=== PATIENT | female | born 1955 | race African-American/Black ===

== ENCOUNTER 2019-12-17 17:35 | Inpatient (IN) | payer OTHER ==
[~2019-12-17] VITALS: Ht 172.7 cm; Wt 88.7 kg
--- NOTE | ~2019-12-17 | EMS ---
[facility] [address] [place] [address] EMS Patient Care Report Name: MARISSA ANTHONY Room #: PRE M.R.#: [id number] Admission: Attend Phys: Discharge: Date of : 53 Report #: [id number] THIS REPORT FOR: //name// Report Transmitted: 12/17/2019 16:58 EMS Care Summary [place], [place]/[facility] Incident [id number] @ 12/17/2019 17:00 Incident Location [address] [place] [address] Patient MARISSA ANTHONY Female, 64 Years 1955 Patient Address [address] [place] [id number] Patient History Congestive Heart Failure (CHF),Hypertension (HTN),Paranoid Schizophrenia, Patient Allergies No known allergies, Patient Medications Meloxicam, Haloperidol, Metoprolol, Risperidone, Spironolactone, Furosemide, Lorazepam, Chief Complaint LOW SPO2 Disposition Transported No Lights/[place] Dispatch Reason Breathing Problem Transported To [facility] Narrative M28 ARRIVES TO FIND 64 Y/O F PT ACTING EXTREMELY LETHARGIC AND WHO, PER PR STAFF, HAS HAD A LOW SPO2. [facility] [address] [place] [address] EMS Patient Care Report Name: [facility] Room #: PRE Navin.R.#: [id number] Admission: Attend Phys: Discharge: Date of : 53 Report #: [id number] ASSESSMENTS AND TREATMENTS NOTED. PT MOVED TO COT VIA [id number]. PT MOVED TO AMBULANCE. PT TRANSPORTED. M28 ARRIVES AT DESTINATION. PT MOVED TO ROOM IN ED. PT MOVED TO BED IN ROOM VIA DRAWSHEET METHOD. PT CARE TRANSFERRED. M28 RETURNS TO SERVICE. Initial Vitals @17:12P: 100,R: 16,BP: 104/62,Pain: 0/10,GCS: 15,SpO2: 76,Revised Trauma: 12, @17:26P: 70,R: 16,GCS: 15,SpO2: 98, Assessments @17:15MENTAL:Person Oriented,Time Oriented,Place Oriented,Event Oriented,SKIN:HEENT:LUNG SOUNDS:ABDOMEN:PELVIS//GI:EXTREMITIES:PULSE:NEURO:@17:20MENTAL:Other,SKIN:No Abnormalities,HEENT:Head/Face: No Abnormalities,Eyes: No Abnormalities,Neck/Airway: No Abnormalities,LUNG SOUNDS:General: No Abnormalities,Left Upper: No Abnormalities,Right Upper: No Abnormalities,Left Lower: No Abnormalities,Right Lower: No Abnormalities,ABDOMEN:General: No Abnormalities,Left Upper: No Abnormalities,Right Upper: No Abnormalities,Left Lower: No Abnormalities,Right Lower: No Abnormalities,PELVIS//GI:No Abnormalities,EXTREMITIES:Left Arm: No Abnormalities,Right Arm: No Abnormalities,Left Leg: No Abnormalities,Right Leg: No Abnormalities,PULSE:NEURO:No Abnormalities, Impression Acute Respiratory Distress (Dyspnea) Procedures @17:17Saline Lock 0cc (18 ga) Site: Antecubital-LeftResponse: UnchangedSucceeded@17:173-Lead ECGResponse: UnchangedSucceeded@17:15ALS AssessmentResponse: UnchangedSucceeded@17:16Oxygen FlowRate: 4 Device: Nasal Cannula (NC) Response: UnchangedSucceeded Timeline 16:58,Call Received 16:58,Dispatch Notified 17:00,Dispatched 17:00,En Route 17:04,On Scene 17:12,At Patient 17:12,BP: 104/62 M,PULSE: 100,RR: 16 R,SPO2: 76 Ox,ETCO2: ,BG: ,PAIN: 0,GCS: 15, 17:15,ALS Assessment,Response: UnchangedSucceeded, 17:16,Oxygen FlowRate: 4 Device: Nasal Cannula (NC) Response: UnchangedSucceeded, 17:17,Saline Lock 0cc 18 ga Site: Antecubital-Left,Response: UnchangedSucceeded, 17:17,3-Lead ECG,Response: UnchangedSucceeded, [facility] [address] [place] [address] EMS Patient Care Report Name: [facility] Room #: PRE M.R.#: [id number] Admission: Attend Phys: Discharge: Date of : 53 Report #: [id number] 17:20,Depart Scene 17:26,BP: / M,PULSE: 70,RR: 16 R,SPO2: 98 Ox,ETCO2: ,BG: ,PAIN: ,GCS: 15, 17:28,At Destination 17:42,Call Closed Disclaimer v1.1 Copyright 2020 [employer] This EMS Care Summary contains data elements from the applicable legal record (which may be displayed differently). It is designed to provide pertinent information for the following purposes: continuity of care, clinical quality, and state data reporting. The complete legal record is available to ED staff and administrators of the receiving hospital in ES's Patient Tracker. All data is provided "as is."
[2019-12-17] MEDS ORDERED: BENZTROPINE ME0.5 MG PO (17:50)
[2019-12-17] MEDS ORDERED: ASA81BEC PO (17:50)
[2019-12-17] MEDS ORDERED: HALOPERIDOL2 MG/1 ML PO (17:51)
[2019-12-17] MEDS ORDERED: MELOXICAM7.5 MG PO (17:51)
[2019-12-17] MEDS ORDERED: DEPAKOTE ER500 M1 PO (17:52)
[2019-12-17] MEDS ORDERED: RISPERDAL 3 MG T3 MG PO (17:53)
[2019-12-17] MEDS ORDERED: LORAZEPAM 0.50.5 MG PO (17:53)
[2019-12-17] MEDS ORDERED: PAIN RELIEF325 MG PO (17:55)
[2019-12-17] MEDS ORDERED: ARISTADA882 MG/3.2 IM (17:55)
[2019-12-17 17:56] LABS: HEMATOCRIT 43.4 % (37.0-47.0); MCH 31.1 pg (26.0-34.0); MCHC 32.3 g/dL (28.0-37.0); MCV 96.3 fL (80.0-100.0); PLATELET COUNT 125 thou/uL (150-400); RBC 4.51 mil/uL (4.20-5.00); RDW 16.8 % (10.5-14.5); WBC 3.6 thou/uL (4.0-11.0)
[2019-12-17] MEDS ORDERED: TOPROL XL25 MG PO (17:58)
[2019-12-17] MEDS ORDERED: FUROSEMIDE 40 M40 MG PO (17:58)
[2019-12-17] MEDS ORDERED: SPIRONOLACTONE25 MG PO (17:59)
[2019-12-17 18:06] LABS: ANION GAP < 0 mmol/L (7-16); BUN 17 mg/dL (7-18); CALCIUM 9.1 mg/dL (8.5-10.1); CHLORIDE 101 mmol/L (98-107); CO2 40 mmol/L (21-32); CREATININE 0.9 mg/dL (0.6-1.0); GLUCOSE 95 mg/dL (74-106); POTASSIUM 3.7 mmol/L (3.5-5.1); SODIUM 139 mmol/L (136-145)
[2019-12-17 18:07] LABS: BE(vivo) 6.2 mmol/L (-2 to +3); HCO3 37.4 mmol/L (22.0-26.0); PO2 95.8 mmHg (80.0-100.0); sO2 95.5 % (92.0-98.0)
[2019-12-17 18:08] LABS: PCO2 92.1 mmHg (35.0-45.0); pH 7.226 (7.360-7.450)
[2019-12-17 18:16] LABS: ABSOLUTE NEUTROPHILS 1.4 thou/uL (1.4-8.2); ANISOCYTOSIS 1+; ATYPICAL LYMPHS 2 %
[2019-12-17 18:26] LABS: SGOT 12 U/L (15-37); SGPT 12 U/L (30-65); TOTAL BILIRUBIN 0.4 mg/dL (<0.1-1.0); TOTAL PROTEIN 7.5 g/dL (6.4-8.2); TROPONIN-I <0.06 ng/mL (<0.06)
[2019-12-17 18:36] VITALS: BP 117/64
[2019-12-17 18:45] LABS: URINE BILIRUBIN NEGATIVE (Negative); URINE BLOOD 1+ (Negative); URINE CLARITY CLEAR; URINE COLOR YELLOW; URINE GLUCOSE-RANDOM* NEGATIVE (Negative); URINE KETONES NEGATIVE (Negative); URINE LEUKOCYTES-REFLEX NEGATIVE (Negative); URINE NITRITE-REFLEX NEGATIVE (Negative); URINE PROTEIN (DIPSTICK) TRACE (Negative); URINE UROBILINOGEN 0.2 E.U./dl (0.2-1.0)
[2019-12-17 18:53] LABS: CASTS None Seen /LPF (None Seen); CRYSTALS None Seen /LPF (None Seen); MUCUS 0-3 Light strn/LPF (None Seen); SQUAMOUS 4-10 Moderate /LPF (0-3)
[2019-12-17 18:54] LABS: BACTERIA-REFLEX None Seen /HPF (None Seen); URINE RBC 0-2 Rare /HPF (0-2); URINE WBC-REFLEX 0-5 Rare /HPF (0-5)
--- NOTE | 2019-12-17 19:21 | NUR ---
RT NOTIFIED REARDING ANOTHER ABG WITH STAT RESULTS
[2019-12-17 19:43] LABS: BE(vivo) 4.2 mmol/L (-2 to +3); HCO3 33.4 mmol/L (22.0-26.0); PO2 92.3 mmHg (80.0-100.0); sO2 95.8 % (92.0-98.0)
[2019-12-17 19:44] LABS: PCO2 72.8 mmHg (35.0-45.0); pH 7.279 (7.360-7.450)
[2019-12-17 20:16] VITALS: BP 102/53
--- NOTE | 2019-12-17 20:20 | NUR ---
CONTACTED ICU TO PROVIDE REPORT. ICU DEFERS PT. AT THIS TIME.
[2019-12-17 20:43] LABS: AMP/METHAMP Negative (Negative); BARBITURATES Negative (Negative); BENZODIAZEPINES Negative (Negative); COCAINE Negative (Negative); METHADONE Negative (Negative); OPIATES Negative (Negative); PCP Negative (Negative)
[2019-12-17 22:22] LABS: BE(vivo) 6.1 mmol/L (-2 to +3); HCO3 35.6 mmol/L (22.0-26.0); PCO2 76.3 mmHg (35.0-45.0); PO2 78.6 mmHg (80.0-100.0); pH 7.287 (7.360-7.450); sO2 93.6 % (92.0-98.0)
[2019-12-17 23:14] VITALS: BP 132/71
[2019-12-17 23:15] VITALS: BP 123/83
[2019-12-17 23:30] VITALS: BP 117/60
[2019-12-17 23:45] VITALS: BP 112/42
--- NOTE | 2019-12-17 23:46 | NUR ---
ASSUMED CARE OF PT AT 2315. PT VERY DROWSY. ABLE TO IDENTIFY SELF. NODS APPROPRIATELY TO Y/N QUESTIONS. PT ABLE TO FOLLOW SIMPLE COMMANDS. SR/SB ON THE MONITOR WITH OCCASSIONAL PVCs. VSS. DR SAL NOTIFIED OF PATIENT'S CURRENT STATUS AND NOTIFIED.
[2019-12-18] VITALS (31 sets, daily range): BP systolic 80–187; BP diastolic 37–162
[2019-12-18 01:25] LABS: BE(vivo) 7.4 mmol/L (-2 to +3); HCO3 35.1 mmol/L (22.0-26.0); PCO2 62.9 mmHg (35.0-45.0); PO2 141.6 mmHg (80.0-100.0); pH 7.364 (7.360-7.450); sO2 98.7 % (92.0-98.0)
[2019-12-18 02:35] LABS: HEMATOCRIT 41.6 % (37.0-47.0); HEMOGLOBIN 13.3 gm/dL (12.0-15.0); MCH 30.8 pg (26.0-34.0); MCHC 31.9 g/dL (28.0-37.0); MCV 96.4 fL (80.0-100.0); RBC 4.32 mil/uL (4.20-5.00); RDW 16.8 % (10.5-14.5); WBC 4.5 thou/uL (4.0-11.0)
[2019-12-18 02:40] LABS: ANION GAP < 0 mmol/L (7-16); BUN 14 mg/dL (7-18); CALCIUM 8.6 mg/dL (8.5-10.1); CHLORIDE 101 mmol/L (98-107); CO2 42 mmol/L (21-32); CREATININE 0.8 mg/dL (0.6-1.0); GLUCOSE 84 mg/dL (74-106); MAGNESIUM 1.7 mg/dL (1.8-2.4); POTASSIUM 3.8 mmol/L (3.5-5.1); SODIUM 142 mmol/L (136-145)
[2019-12-18 07:45] LABS: BE(vivo) 4.7 mmol/L (-2 to +3); HCO3 39.9 mmol/L (22.0-26.0); PCO2 138.3 mmHg (35.0-45.0); PO2 96.2 mmHg (80.0-100.0); pH 7.078 (7.360-7.450); sO2 93.2 % (92.0-98.0)
--- NOTE | 2019-12-18 08:38 | EKG ---
[facility] [address] [place] [address] ELECTROCARDIOGRAM REPORT Name: [facility] Room #: 236-P ADM IN M.R.#: [id number] Admission: 12/17/19 Attend Phys: Jimi Martin MD Discharge: Date of : 53 Report #: [id number] THIS REPORT FOR: cc: FAM - Family physician unknown FAM - Family physician unknown Darell Olivares MD [facility] ~ THIS REPORT FOR: //name// [facility] Test Date: 2019-12-17 Test Time: 18:20:25 Pat Name: MARISSA ANTHONY Department: Room: [facility] Gender: F Operation Research Analyst: CISCO : 1955 Requested By: Zulema Barcenas Order Number: [id number] MD: Darell Olivares Measurements Intervals [place] Rate: 84 P: 40 SC: 132 QRS: -30 QRSD: 100 T: 141 QT: 433 QTc: 512 Interpretive Statements Sinus rhythm Ventricular premature complex Left atrial enlargement LVH with secondary repolarization abnormality Prolonged QT interval No previous ECG available for comparison Electronically Signed On 12-18-2019 8:36:57 CDT by Darell Olivares [email or web address] <ELECTRONICALLY SIGNED> By: Darell Olivares MD, FAC 12/18/19 0836 1820 182 Darell Olivares MD, [facility] /EPI
--- NOTE | 2019-12-18 11:26 | NUR ---
07 - DR SAL ON UNIT. UPDATE GIVEN FROM NIGHT RN. PT ON BIPAP AND HAD EPISODE OF VOMITING. REPEAT ABG DONE. RESULTS SHOWN TO DR. SAL. ORDERS TO PREPARE FOR INTUBATION, EUGENIE PLACEMENT AND CENTRAL LINE PLACEMENT. 0800 - IN PATIENT ROOM. LEVOPHED STARTED PER OCT. RESPIRATORY IN ROOM. 0820 - DR. SAL IN ROOM. 4O OF ETOMIDATE GIVEN. 40 OF SUCCINYLCHOLINE GIVEN. PT INTUBATED AT 0825. 7.5 ET, 24 @ LIP. 0830 - EUGENIE PLACED TO RIGHT RADIAL BY DR. SAL. PROPOFOL GTT INITIATED FOR VENT MANAGEMENT. TITRATING LEVOPHED TO MAINTAIN BLOOD PRESSURES. ATTEMPT TO PLACE CENTRAL LINE BY DR. SAL. UNSUCCESSFUL. AFTER ATTEMPTS OF CENTRAL LINE PLACEMENT, NOTED PATIENT BECAME BRADYCARDIC, NOTIFED DR. SAL, ORDERS FOR DOPAMINE GTT. 1299 - DR. ELAINE ON UNIT TO PLACE CENTRAL LINE. LINE PLACED TO RIGHT JUGULAR. CONFIRMED BY XRAY. ALSO CONFIRMED BY DR. ELAINE.
[2019-12-18 11:58] LABS: BE(vivo) 6.2 mmol/L (-2 to +3); HCO3 30.7 mmol/L (22.0-26.0); PCO2 43.3 mmHg (35.0-45.0); PO2 132.9 mmHg (80.0-100.0); pH 7.468 (7.360-7.450); sO2 98.8 % (92.0-98.0)
--- NOTE | 2019-12-18 12:00 | NUR ---
INITIAL ASSESSMENT: COMPA reviewed chart and spoke with nursing and attending physician. Pt was admitted from [facility] due to acute respiratory failure, CHF, AMS. Pt is in Enhanced Isolation to r/o COVID-19. Pt was on bipap earlier today and intubated late this morning. COMPA spoke with Manuel Kirk with the [facility] Public Rocket Motor Tester's office to provide update. Pt is a hinojosa of the [facility]. Pt with hx of paranoid schizophrenia. Pt is not normally on O2 at the facility and is able to ambulate independently. Awiating COVID-19 results at this time. COMPA received copy of guardianship ppwk. Faxed to ICU and spoke with pt's nurse to place on pt's chart. COMPA placed PA office contact info in [email or web address] should nursing/physicians need consents. COMPA is following to assist as needed with discharge planning.
--- NOTE | 2019-12-18 12:31 | NUR ---
SPOKE WITH [facility] OFFICE REGARDING PATIENT CARE/TREATMENT. UPDATED ON PT STATUS AND PROCEDURES COMPLETED THIS AM. MEDICAL NECESSITY CONSENTS SIGNED BY DR. SAL FOR EMERGENT PROCEDURES. ALSO NOTIFED ABOUT PLACEMENT OF RESTRAINTS FOR ET TUBE PROTECTION.
[2019-12-18 14:05] LABS: MAGNESIUM 1.9 mg/dL (1.8-2.4); POTASSIUM 3.6 mmol/L (3.5-5.1)
--- NOTE | 2019-12-18 15:44 | 2DMMODE ---
[facility] [address] [address] 2 D/M-MODE ECHOCARDIOGRAM Name: [facility] Room #: 236-P ADM IN M.R.#: [id number] Admission: 12/17/19 Attend Phys: Fuentes Dubon MD Discharge: Date of : 53 Report #: [id number] THIS REPORT FOR: cc: FAM - Family physician unknown FAM - Family physician unknown Bharathi Angelo MD ~ APPROVED REPORT Study performed: 12/18/2019 14:58:45 EXAM: Comprehensive 2D, Doppler, and color-flow Echocardiogram Patient Location: ICU Room #: 236 Status: routine BSA: 1.95 HR: 87 bpm BP: 100/44 mmHg Other Information Study Quality: Adequate Technically limited study due to patient laying on her right side/on vent. Indications CHF. Shortness of breath, elevated BNP. Hx: Tob, HTN. 2D Dimensions IVSd: 9.26 (7-11mm) LVOT Diam: 18.52 (18-24mm) LVDd: 57.22 mm PWd: 7.61 (7-11mm) LVDs: 50.08 (25-40mm) Aortic Root: 29.75 mm Aortic Valve AoV Peak Leonardo.: 1.64 m/s AO Peak Gr.: 10.77 mmHg LVOT Max P.89 mmHg LVOT Max V: 1.31 m/s TAYLER Vmax: 2.15 cm2 Mitral Valve E/A Ratio: 1.1 MV Decel. Time: 202.29 ms MV E Max Leonardo.: 1.03 m/s [facility] [address] [place] [place] [address] 2 D/M-MODE ECHOCARDIOGRAM Name: [facility] Room #: 236 ADM IN M.R.#: [id number] Admission: 12/17/19 Attend Phys: Fuentes Dubon, Discharge: Date of : 53 Report #: [id number] MV A Leonardo.: 0.93 m/s MV PHT: 58.66 ms Tricuspid Valve TR Peak Leonardo.: 3.09 m/s RAP Estimate: 15.00 mmHg TR Peak Gr.: 38.24 mmHg PA Pressure: 53.00 mmHg Left Ventricle Left ventricle is mildly dilated. Regional wall motion abnormalities are noted. There is normal left ventricular wall thickness. Left ventricular systolic function is moderate to severely decreased. LVEF is 30-35%. Moderate diastolic dysfunction is present (pseudonormal filling). Right Ventricle Right ventricle is not well visualized but appears grossly normal in size and function. Atria Left atrium is dilated. The right atrium size is normal. Aortic Valve The aortic valve is normal in structure. Trace aortic regurgitation. There is no aortic valvular stenosis. Mitral Valve The mitral valve is normal in structure. Trace mitral regurgitation. No evidence of mitral valve stenosis. Tricuspid Valve The tricuspid valve is normal in structure. Mild tricuspid regurgitation. Estimated PAP is 50mmHg. Pulmonic Valve Pulmonic valve is not well visualized. Great Vessels The aortic root is normal in size. IVC is dilated and collapses <50% with inspiration. Pericardium There is no pericardial effusion. <Conclusion> Left ventricle is mildly dilated. [facility] [address] [place] [address] 2 D/M-MODE ECHOCARDIOGRAM Name: [facility] Room #: 236-P ADM IN M.R.#: [id number] Admission: 12/17/19 Attend Phys: Fuentes Dubon, Discharge: Date of : 53 Report #: [id number] LVEF is 30-35%. Regional wall motion abnormalities are noted. Right ventricle is not well visualized but appears grossly normal in size and function. Left atrium is dilated. The aortic valve is normal in structure. Trace aortic regurgitation. The mitral valve is normal in structure. Trace mitral regurgitation. The tricuspid valve is normal in structure. Mild tricuspid regurgitation. Estimated PAP is 50mmHg. Pulmonic valve is not well visualized. There is no pericardial effusion. <ELECTRONICALLY SIGNED> By: Bharathi Angelo MD 12/18/19 1542 1542 154 Bharathi Angelo MD /INF
[2019-12-19 05:53] LABS: HEMATOCRIT 42.6 % (37.0-47.0); HEMOGLOBIN 14.1 gm/dL (12.0-15.0); MCH 30.9 pg (26.0-34.0); MCV 93.7 fL (80.0-100.0); RBC 4.55 mil/uL (4.20-5.00); RDW 15.8 % (10.5-14.5); WBC 10.4 thou/uL (4.0-11.0)
[2019-12-19 06:20] LABS: CALCIUM 8.8 mg/dL (8.5-10.1); CREATININE 0.9 mg/dL (0.6-1.0); PHOSPHORUS 2.7 mg/dL (2.5-4.9); POTASSIUM 3.5 mmol/L (3.5-5.1)
--- NOTE | 2019-12-19 07:31 | NUR ---
SEDATION VACATION AT 2107; PT OPENS EYES TO VOICE AND PAINFUL STIMULI. POSITIVE COUGH ANG GAG NOTED, WILL SQUEEZ HANDS AND MOVE HER FEET. SEDATION VACATION LASTED 15 MINUTES. PROPOFOL TITRATED DOWN TO 30MCG. DOPAMINE AND LEVO TITRATED PRN (SEE FLOW SHEET) PT VSS. PT IS STABLE AND IS SLOWLY PROGRESSING TOWARDS POC
--- NOTE | 2019-12-19 13:54 | EKG ---
[facility] [address] [place] [address] ELECTROCARDIOGRAM REPORT Name: [facility] Room #: 244-P ADM IN M.R.#: [id number] Admission: 12/17/19 Attend Phys: Fuentes Dubon MD Discharge: Date of : 53 Report #: [id number] THIS REPORT FOR: cc: FAM - Family physician unknown FAM - Family physician unknown Oleg Mendez MD ~ THIS REPORT FOR: //name// [facility] Test Date: 2019-12-19 Test Time: 11:24:10 Pat Name: MARISSA GABRIELLE Department: Room: 244 Gender: F Grade Tamper: PASTOR : 1955 Requested By: Kathryn Aguilar Order Number: [id number] : Oleg Mendez Measurements Intervals [place] Rate: 63 P: 34 NV: 120 QRS: -14 QRSD: 107 T: 256 QT: 482 QTc: 494 Interpretive Statements Sinus rhythm Probable left atrial enlargement Abnormal T, consider ischemia, diffuse leads Compared to ECG 12/17/2019 18:20:25 T-wave abnormality now present Possible ischemia now present Ventricular premature complex(es) no longer present Left ventricular hypertrophy no longer present Early repolarization no longer present Prolonged QT interval no longer present Electronically Signed On 12-19-2019 13:53:11 CDT by Oleg Mendez [email or web address] <ELECTRONICALLY SIGNED> By: Oleg Mendez MD 12/19/19 1353 1124 1124 Oleg Mendez MD /EPI
--- NOTE | 2019-12-19 15:05 | NUR ---
SW reviewed chart and spoke with attending physician. Pt's COVID-19 test is negative. Pt remains intubated. Update provided to [facility] Office, Manuel Kirk. discharge planner to fax clinical info to [facility] for review. COMPA is following to assist as needed with discharge planning.
--- NOTE | 2019-12-19 16:20 | NUR ---
FAXED CLINICAL UPDATE TO [facility] RECEIVED CONFIRMATION WILL F/U WITH ADM, IN AM. DP TO FOLLOW.
--- NOTE | 2019-12-19 17:15 | NUR ---
ASSUMED CARE AT 0700, ASSESSMENT AND VITAL SIGNS COMPLETED PER ICU PROTOCOL. DR. SAL ROUNDED THIS AM, NEW ORDERS RECEIVED AND EXECUTED. DR. FELICIANO ROUNDED THIS AM. UMM ZARAGOZA NP ROUNDED THIS AM. DR. AYALA (CARDIOLOGY) ROUNDED, NO NEW ORDERS RECEIVED. DR. ELAINE ROUNDED, NO NEW ORDERS. DR. SAL INFORMED INFORMED OF LOW URINE OUTPUT THIS MORNING DURING ROUNDS. DURING ASSESSMENT, RN NOTICED ABUNDANT AMOUNTS OF LICE AND EGGS IN PT'S HAIR. PT PLACED IN CONTACT ISOLATION WITH APPROPRIATE SIGN AND PRECAUTIONS. DR. FELICIANO PAGED AND NOTIFIED, ORDERED RN TO SHAVE PT'S HEAD A MEDICAL NECESSITY. CONSENT PRINTED AND WILL BE SIGNED BY PHYSICIAN MEDICAL NECESSITY. ORDER RECEIVED AND EXECUTED BY RN, NO ISSUES NOTED. DR. SAL PAGED THIS AFTERNOOON AND NOTIFIED OF CONTINUED LOW URINE OUTPUT. NEW ORDERS RECEIVED AND EXECUTED.
[2019-12-20] VITALS (10 sets, daily range): BP systolic 92–145; BP diastolic 43–60
[2019-12-20 05:13] LABS: HEMATOCRIT 43.4 % (37.0-47.0); HEMOGLOBIN 14.2 gm/dL (12.0-15.0); MCH 30.8 pg (26.0-34.0); MCHC 32.7 g/dL (28.0-37.0); MCV 94.2 fL (80.0-100.0); RBC 4.61 mil/uL (4.20-5.00); RDW 16.6 % (10.5-14.5); WBC 10.5 thou/uL (4.0-11.0)
[2019-12-20 05:28] LABS: CALCIUM 8.7 mg/dL (8.5-10.1); CREATININE 0.9 mg/dL (0.6-1.0); MAGNESIUM 1.9 mg/dL (1.8-2.4); PHOSPHORUS 3.4 mg/dL (2.5-4.9); POTASSIUM 3.2 mmol/L (3.5-5.1)
--- NOTE | 2019-12-20 08:02 | NUR ---
PT NOT FOLLOWING COMMANDS. PT OFF LEVOPHED. URINE OUTPUT INCREASED AFTER STARTING IVF. CHART CHECK. REPORT GIVEN TO MAYA IYER. PT PROGRESSING TOWARDS GOALS. CONTINUE TO MONITOR.
--- NOTE | 2019-12-20 15:47 | NUR ---
COMPA reviewed chart and spoke with attending physician. Pt remains intubated and sedated. Pt was found to have head lice and eggs. Nursing staff shaved his head yesterday. COMPA provided update to Manuel Kirk with [facility] Public Materials Intern's Office. Plan is for pt to return to [facility] when medically stable. COMPA is following to assist as needed with discharge planning.
[2019-12-20 18:07] LABS: ANA INTERPRETATION Negative (())
--- NOTE | 2019-12-20 18:28 | NUR ---
ASSESSMENTS AND INTERVENTIONS DOCCUMENTED. PATIENT REMAINS INTUBATED AND SEDATED. NO MAJOR CHANGES THROUGH OUT SHIFT. PATIENT STARTED ON TUBE FEEDING PER DIETARY RECCOMENDATION. PATIENT IS NOT PROGRESSING TOWARDS GOALS AT THIS TIME. PATIENT TOLERATING TUBE FEEDING
[2019-12-21] VITALS (25 sets, daily range): BP systolic 98–145; BP diastolic 41–72
[2019-12-21 04:05] LABS: HEMATOCRIT 43.3 % (37.0-47.0); HEMOGLOBIN 14.1 gm/dL (12.0-15.0); MCH 30.5 pg (26.0-34.0); MCHC 32.5 g/dL (28.0-37.0); RBC 4.61 mil/uL (4.20-5.00); RDW 16.6 % (10.5-14.5); WBC 9.8 thou/uL (4.0-11.0)
[2019-12-21 04:09] LABS: CALCIUM 7.8 mg/dL (8.5-10.1); CREATININE 0.8 mg/dL (0.6-1.0); MAGNESIUM 1.8 mg/dL (1.8-2.4); POTASSIUM 3.4 mmol/L (3.5-5.1)
--- NOTE | 2019-12-21 04:18 | NUR ---
0300: PT MONITOR ALARMING VENT RHYTHM. 0315: EKG ORDERED AND MAGNESIUM LAB ORDERED BY THADDEUS. 0319: EKG SHOWING ACUTE LA, JUNCTIONAL RHYTHM. 0418: CARDIOLOGY CALLED. INFORMED ABOUT THE ABNORMAL EKG FINDINGS. ORDER FOR EKG IN THE AM.
--- NOTE | 2019-12-21 04:33 | NUR ---
0432: DR. MONTEJO CALLED BACK. DISCUSSED ABOUT PT EKG. PER DR. MONTEJO NO WI. CONDUCTION CHANGE.IMCOMPLETE BUNDLE NO ISSUE.
--- NOTE | 2019-12-21 06:47 | NUR ---
PT SLOWLY PROGRESSING TOWARDS GOAL. PT TOLERATING TUBE FEED. CONTINUE TO MONITOR. CHART CHECK.
--- NOTE | 2019-12-21 08:15 | EKG ---
[facility] [address] [place] [address] ELECTROCARDIOGRAM REPORT Name: [facility] Room #: 244-P ADM IN M.R.#: [id number] Admission: 12/17/19 Attend Phys: Fuentes Dubon MD Discharge: Date of : 53 Report #: [id number] THIS REPORT FOR: cc: JOSE DAVID - Family physician unknown FAM - Family physician unknown Darell Olivares MD [facility] ~ THIS REPORT FOR: //name// [facility] Test Date: 2019-12-21 Test Time: 02:56:26 Pat Name: MARISSA ANTHONY Department: Room: [facility] Gender: F Director Public Policy: EDDI TREJO : 1955 Requested By: Mahnaz Powell Order Number: [id number] MD: Darell Olivares Measurements Intervals [place] Rate: 86 P: 44 MN: 123 QRS: -24 QRSD: 96 T: 140 QT: 409 QTc: 490 Interpretive Statements Sinus rhythm Probable left atrial enlargement Borderline left axis deviation Abnormal T, consider ischemia, lateral leads Compared to ECG 12/19/2019 11:24:10 ST and T wave abnormalities less pronounced Electronically Signed On 12-21-2019 7:45:58 CDT by Darell Olivares [email or web address] <ELECTRONICALLY SIGNED> By: Darell Olivares MD, [facility] 12/21/19 0745 0256 0256 Darell Olivares MD, [facility] /EPI
--- NOTE | 2019-12-21 09:48 | EKG ---
[facility] [address] [place] [address] ELECTROCARDIOGRAM REPORT Name: [facility] Room #: 244-P ADM IN M.R.#: [id number] Admission: 12/17/19 Attend Phys: Fuentes Dubon MD Discharge: Date of : 53 Report #: [id number] THIS REPORT FOR: cc: FAM - Family physician unknown FAM - Family physician unknown Oleg Mendez MD ~ THIS REPORT FOR: //name// [facility] Test Date: 2019-12-21 Test Time: 03:19:33 Pat Name: MARISSA GABRIELLE Department: Room: 244 Gender: F Demolition Hammer Operator: EDDI TREJO : 1955 Requested By: Mahnaz Powell Order Number: [id number] MD: Oleg Mendez Measurements Intervals [place] Rate: 74 P: MS: QRS: 160 QRSD: 159 T: -14 QT: 511 QTc: 567 Interpretive Statements sinus rhythm. Nonspecific intraventricular conduction delay Compared to ECG 12/21/2019 02:56:26 Electronically Signed On 12-21-2019 9:46:42 CDT by Oleg Mendez [email or web address] <ELECTRONICALLY SIGNED> By: Oleg Mendez MD 12/21/19 0946 Oleg Mendez MD /EPI
[2019-12-21 10:20] LABS: BE(vivo) -1.8 mmol/L (-2 to +3); HCO3 20.3 mmol/L (22.0-26.0); pH 7.479 (7.360-7.450); sO2 96.2 % (92.0-98.0)
--- NOTE | 2019-12-21 15:17 | NUR ---
ASSUMED CARE AT 0700, ASSESSMENT AND VITAL SIGNS COMPLETED PER ICU PROTOCOL. DR. SAL ROUNDED THIS AM. UMM ZARAGOZA, AIRCRAFT ENGINE MECHANIC [employer] WITH CARDIOLOGY, ROUNDED THIS AM, NEW ORDERS RECEIVED.
--- NOTE | 2019-12-21 15:45 | NUR ---
COMPA reviewed chart and spoke with attending physician. Pt remains intubated and sedated. Pt has NG tube in place. Cardiology consulted. COMPA provided upate to Manuel Kirk with the [facility] Public Taproom Attendant's office. Per Manuel, pt's children (Juan, Jade, and Yindia) are able to be provided with basic info only. This information discussed with pt's nurse. [facility] COMPA is following to assist as needed with discharge planning.
[2019-12-22] VITALS (20 sets, daily range): BP systolic 103–137; BP diastolic 44–68
[2019-12-22 04:34] LABS: HEMATOCRIT 42.7 % (37.0-47.0); HEMOGLOBIN 13.7 gm/dL (12.0-15.0); MCH 30.7 pg (26.0-34.0); MCHC 32.1 g/dL (28.0-37.0); MCV 95.8 fL (80.0-100.0); RBC 4.46 mil/uL (4.20-5.00); RDW 17.1 % (10.5-14.5)
[2019-12-22 05:07] LABS: CALCIUM 8.8 mg/dL (8.5-10.1); CREATININE 0.7 mg/dL (0.6-1.0); MAGNESIUM 2.1 mg/dL (1.8-2.4)
[2019-12-22 05:08] LABS: ADENOVIRUS Negative (Negative); INFLUENZA A Negative (Negative); INFLUENZA B Negative (Negative); METAPNEUMOVIRUS Negative (Negative); PARAINFLUENZA 1 Negative (Negative); PARAINFLUENZA 2 Negative (Negative); PARAINFLUENZA 3 Negative (Negative); RHINOVIRUS Negative (Negative); RSV A Negative (Negative); RSV B Negative (Negative)
--- NOTE | 2019-12-22 07:24 | NUR ---
ASSUMED PATIENT CARE AT 1845. VITAL SIGNS STABLE WITH PATIENT NOT HAVING ANY PAIN OR NAUSEA. BREATHING STABLE ON VENTILATOR EVIDENCED BY ASSESSMENT AND READINGS FROM CONTINUOUS SATURATION MONITOR. DOPAMINE AND PROPOFOL GTTS TITRATED TO POSITIVE EFFECT. FREQUENT TRACH CARE PROVIDED. CONTINUE PLAN OF CARE.
[2019-12-22 09:01] LABS: BE(vivo) -1.7 mmol/L (-2 to +3); HCO3 23.2 mmol/L (22.0-26.0); PCO2 39.8 mmHg (35.0-45.0); PO2 76.5 mmHg (80.0-100.0); pH 7.383 (7.360-7.450); sO2 95.2 % (92.0-98.0)
--- NOTE | 2019-12-22 10:47 | NUR ---
Juan Zana called RN to speak with the PT. RN stated the PT could not speak on the phone at this time and asked if he had the passcode. Mr. Spann stated, "No, and I've been trying to call for a week now but no one will tell me what's going on. I'm her son, her next of kin." RN informed Mr. Spann that because the PT is a [place] of the state they must get permission from her appointed guardian before any information can be given out. He stated understanding. RN called PT's case management assistant and they stated that RN could give Mr. Spann "verbal general information" and if he has any further questions he can call [phone] and ask to speak with the PT's case management assistant. RN verbalized understanding. RN attempted to call Mr. Spann at 1045 to update him however he did not answer and the voice mail box was not set up. RN will continue to monitor.
--- NOTE | 2019-12-22 13:49 | NUR ---
SW reviewed chart and spoke with attending physician. Pt remains intubated and sedated. Pt had not been tolerating vent weaning trials. COMPA provided update to Manuel Kirk with [facility] Public Lubrication Servicer's office. No weekend discharge planned. Pt's children are able to receive general and basic information regarding her status, per PA office. COMPA is following to assist as needed with discharge planning.
--- NOTE | 2019-12-22 18:02 | NUR ---
Assumed care at 0700. During sedation vacation PT did not follow commands however she did open her eyes spontaneously and to voice. PT appeared to track with her eyes. A CPAP trial began at 0816 and ended at 0825. PT became restless, tachypneic, and did not tolerate the CPAP trial well. PT did not progress towards goal this shift. PT remains on dopamine, amiodarone, and propofol gtt. Tube feeds at goal and PT appears to tolerate well. High fall risk precautions are in place. RN will continue to monitor.
[2019-12-23] VITALS (12 sets, daily range): BP systolic 110–134; BP diastolic 44–73
--- NOTE | 2019-12-23 06:16 | NUR ---
Shift summary: Uneventful night. Pt remains sedated on vent. Opens eyes. Does not attempt to communicate or follow commands. Impulsive. Bilateral soft wrist restraints remain in place. VSS on Dopamine gtt at 5 mcg/kg/min and Amiodarone gtt at 0.5 mg/min. SB per monitor. Right radial a-line transduced with appropriate waveform. Afebrile this am. No am labs, ABG, or chest X Ray ordered. Tolerating current vent settings. Large amt oral secretions, minimal secretions via ETT. Tolerating tube feeding. BM x 2 this shift. Small, liquid, dark brown. Blood sugars covered with low dose SSC. Micah with 1250 uop/12 hrs. Plan of care reviewed and updated as able. Minimal progress towards discharge goals.
[2019-12-23 10:47] LABS: HEMOGLOBIN 14.5 gm/dL (12.0-15.0); MCH 30.7 pg (26.0-34.0); MCHC 32.9 g/dL (28.0-37.0); MCV 93.6 fL (80.0-100.0); RBC 4.71 mil/uL (4.20-5.00); RDW 16.8 % (10.5-14.5); WBC 7.7 thou/uL (4.0-11.0)
[2019-12-23 10:55] LABS: ANION GAP < 0 mmol/L (7-16); BUN 23 mg/dL (7-18); CALCIUM 8.4 mg/dL (8.5-10.1); CO2 31 mmol/L (21-32); CREATININE 0.7 mg/dL (0.6-1.0); GLUCOSE 189 mg/dL (74-106); POTASSIUM 4.5 mmol/L (3.5-5.1)
[2019-12-23 11:02] LABS: CHLORIDE 116 mmol/L (98-107); SODIUM 139 mmol/L (136-145)
--- NOTE | 2019-12-23 19:28 | NUR ---
ASSESSMENTS AND INTERVENTIONS DOCCUMENTED. NO MAJOR CHANGES THROUGH OUT SHIFT. PATIENT REMAINS INTUBATED AND SEDATED AND ON DOPAMINE. PATIENT PROGRESSING TOWARDS GOALS AT THIS TIME EVIDENCE BY PATIENT TRACKING WHEN SHE WAS NOT BEFORE. POC IS TO STAR CPAP \
[2019-12-24] VITALS (12 sets, daily range): BP systolic 95–131; BP diastolic 38–69
[2019-12-24 04:24] LABS: HEMATOCRIT 43.8 % (37.0-47.0); HEMOGLOBIN 14.6 gm/dL (12.0-15.0); MCH 31.4 pg (26.0-34.0); MCHC 33.3 g/dL (28.0-37.0); MCV 94.2 fL (80.0-100.0); RBC 4.65 mil/uL (4.20-5.00); RDW 16.7 % (10.5-14.5); WBC 8.8 thou/uL (4.0-11.0)
[2019-12-24 04:37] LABS: CALCIUM 8.8 mg/dL (8.5-10.1); CREATININE 0.7 mg/dL (0.6-1.0); POTASSIUM 4.7 mmol/L (3.5-5.1)
--- NOTE | 2019-12-24 06:45 | NUR ---
Shift summary: Pt remains sedated on vent. Arouses. Tracks. Does not follow commands. VSS. Afebrile. SR per monitor. Amiodarone gtt @ 0.5 mg/min and Dopamine gtt at 4 mcg/kg/min. Tolerating current vent settings. No ABG or chest xray ordered. AM labs unremarkable. Tolerating tube feed. Small liquid BM. Obrien with good urine output. Plan of care reviewed and updated as able. Pt impulsive, bilateral soft wrist restraints remain in place. Report to Chey TREJO.
--- NOTE | 2019-12-24 10:29 | NUR ---
Dopamine weaned off at 1000 as pt was in sinus tachycardia with rates 112-118 and blood pressure 120-130's/60-70's. Pt also awake/drowsy with no apparent distress. Dopamine resumed at 1025 at 2 mcg/kg/min as pt now sinus bradycardia with rate 50's and systolic pressures 90-100's. Pt resting quietly.
--- NOTE | 2019-12-24 18:27 | NUR ---
Pt continues sinus bradycardia (rate 50's) with Dopamine at 3 mcg/kg/min. Maintained on ventilator with no weaning trials ordered. Pt has required minimal suctioning per ET tube. Continue to support pt and work toward goals.
[2019-12-25] VITALS (10 sets, daily range): BP systolic 90–129; BP diastolic 38–59
[2019-12-25 05:50] LABS: HEMATOCRIT 45.9 % (37.0-47.0); MCH 30.9 pg (26.0-34.0); MCHC 32.6 g/dL (28.0-37.0); MCV 94.8 fL (80.0-100.0); RBC 4.85 mil/uL (4.20-5.00); RDW 16.3 % (10.5-14.5); WBC 9.5 thou/uL (4.0-11.0)
--- NOTE | 2019-12-25 06:00 | NUR ---
REMAINS INTUBATED AND SEDATED LIGHTLY WITH PROPOFOL AT 30 MCG. HAD A MOD AMT BROWN LIQUID STOOL. REMAINS ON DOPAMINE AT 3 MCG AMIO AT .5 MCG MARK GRAY SR. WILL CONT TO MONITOR.
[2019-12-25 06:14] LABS: CALCIUM 8.8 mg/dL (8.5-10.1); CREATININE 0.7 mg/dL (0.6-1.0); POTASSIUM 4.8 mmol/L (3.5-5.1)
--- NOTE | 2019-12-25 07:34 | NUR ---
Assumed care at 0700. Sedation vacation was performed at 0715. PT opened her eyes spontaneously, shook her head no to all questions, and was noted to have full body tremors. PT appeared to have some facial grimacing and did not follow any commands. Sedation was turned back on at 0730 and the tremors stopped. High fall risk precautions are in place. RN will continue to monitor.
--- NOTE | 2019-12-25 16:34 | NUR ---
SW reviewed chart and spoke with attending physician. Pt remains intubated and sedated in ICU. Pt to start vent weaning trials. COMPA provided clinical updat to Manuel Kirk at [facility] Public Truck Driver Heavy's office. Pt is from [facility]. COMPA is following to assist as needed with discharge planning.
--- NOTE | 2019-12-25 18:32 | NUR ---
PT appears to be improving towards care plan goals. Pt is tolerating tube feeds well. The amiodarone and dopamine gtts have been titrated off. PT follows some commands during sedation vacation. High fall risk precautions are in place. RN will continue to monitor.
--- NOTE | 2019-12-25 19:42 | NUR ---
1935: RT at bedside to place pt on CPAP (FIO2 30%, PS 6, P6) for trial. Propofol left at 30 mcg/kg/min as pt is opening eyes spontaneously, nodding head and attempting to mouth words. Pt reoriented and emotional support given, pt seemed to understand. Will monitor closely during trial. At the time of this note pt is resting comfortably and appears to be in no distress.
[2019-12-25 20:44] LABS: BE(vivo) 5.4 mmol/L (-2 to +3); HCO3 31.3 mmol/L (22.0-26.0); PCO2 50.6 mmHg (35.0-45.0); PO2 62.4 mmHg (80.0-100.0); pH 7.409 (7.360-7.450); sO2 91.8 % (92.0-98.0)
--- NOTE | 2019-12-25 22:02 | NUR ---
2034 ABG noted and reported to Dr. Hastings. Pt remained comfortable during CPAP trial. SPO2 noted to be right around 91-92% towards the end. Pt placed back on to vent settings and FIO2 increased to 40% per Dr. Hastings.
[2019-12-26] VITALS (11 sets, daily range): BP systolic 96–111; BP diastolic 42–54
--- NOTE | 2019-12-26 06:40 | NUR ---
Pt slowly progressing towards goals. Propofol at 30 mcg/kg/min, when lightened pt has severe tremors to BUE, R>L. Tolerating tube feeds and water boluses/beneprotein at goal rate without residuals. 1 large, liquid BM this shift. Obrien to DD with 550 ml out. Tolerating current vent settings with improved O2 sat after increasing FIO2 to 40%. Turned q2-3 hours, CLRT in progress. BL wrist restraints in place as pt reaches up for ETT. Bed low and locked with alarm activated for pt safety. Will continue to monitor closely.
[2019-12-26 06:44] LABS: CALCIUM 8.7 mg/dL (8.5-10.1); CREATININE 0.7 mg/dL (0.6-1.0); POTASSIUM 4.6 mmol/L (3.5-5.1)
[2019-12-26 12:25] LABS: BE(vivo) 4.8 mmol/L (-2 to +3); HCO3 30.4 mmol/L (22.0-26.0); PCO2 48.1 mmHg (35.0-45.0); PO2 69.4 mmHg (80.0-100.0); pH 7.418 (7.360-7.450)
--- NOTE | 2019-12-26 15:33 | NUR ---
PT REMAINS ALERT AND FOLLOWS COMMANDS. TREMORS AT TIME. SINUS RHYTHM NOTED.LUNGS ARE COARSE. GUERRA TO DD WITH RIA URINE NOTED. RESTRAINTS BILAERAL WRIST X2. MODERATE SEDATIONN NOTED ON THE VENT/ . SCDS ON BILAERAL NOTED. ARTERIAL LINE REMAINS IN PLACE. RIGHT RADIAL. NO CONCERNS OR ISSUES NOTED PER NURSING. WILL CONTINUE ONGOING NURSING CARE.
--- NOTE | 2019-12-26 16:39 | NUR ---
SW reviewed chart and spoke with attending physician. Pt remains intubated. Vent weaning trials continue. Pt provided update to Manuel Kirk with [facility]. COMPA is following to assist as needed with discharge planning.
[2019-12-27] VITALS (16 sets, daily range): BP systolic 96–129; BP diastolic 43–68
[2019-12-27 07:09] LABS: CALCIUM 8.4 mg/dL (8.5-10.1); CREATININE 0.7 mg/dL (0.6-1.0); POTASSIUM 4.8 mmol/L (3.5-5.1)
--- NOTE | 2019-12-27 08:05 | NUR ---
ASSESSMENT COMPLETED, PROPOFOL HELD FOR SEDATION VACATION AT THIS TIME.
--- NOTE | 2019-12-27 09:45 | NUR ---
CPAP TRIAL STARTED AT 914. 02/02 40%. PT TOLERATING WELL SO FAR. VSS. BP 132/54 HR 80 SPO2 96% RESP [address] FELICIANO TO [place] ART LINE
--- NOTE | 2019-12-27 10:31 | NUR ---
RIGHT RADIAL A LINE REMOVED. PRESSURE HELD UNTIL HEMOSTASIS ACHIEVED. DRESSING APPLIED. NO HEMATOMA, DRY, GOOD PULSE.
[2019-12-27 12:37] LABS: BE(vivo) 6.8 mmol/L (-2 to +3); HCO3 32.1 mmol/L (22.0-26.0); PCO2 48.5 mmHg (35.0-45.0); PO2 72.7 mmHg (80.0-100.0); pH 7.439 (7.360-7.450)
--- NOTE | 2019-12-27 13:41 | NUR ---
pt to be extubated per dr rodgers, residual of stomach only 10mL. pt extubated by rt at 1330, ng tube also removed by this rn. pt placed on 5l NC. BP 122/54 HR 84 SPO2 97% RESP 19. will continue to follow
--- NOTE | 2019-12-27 14:30 | NUR ---
pt with very hoarse whisper voice. pt asking if she is going to have to ride the bus. thinks it is 2018. did know she was at [facility] and her name. asked to have her face wiped off. doing well on nc, decreased to 3l
--- NOTE | 2019-12-27 16:13 | NUR ---
COMPA reviewed chart and spoke with nursing and attending physician. Pt was extubated earlier this afternoon and is tolerating O2 via NC. Pt's NG tube was also removed. Psych to be consulted to restart pt on her psych meds. 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 Plan is for pt to return to [facility]. COMPA provided clinical update to Manuel Kirk with the [facility] PA office. COMPA is following to assist as needed with discharge planning.
--- NOTE | 2019-12-27 18:53 | NUR ---
PT MAINTAINED SPO2 ON 3L NC. VSS.
[2019-12-28] VITALS (11 sets, daily range): BP systolic 104–124; BP diastolic 44–70
--- NOTE | 2019-12-28 01:08 | NUR ---
THIS NURSE TOOK OVER CARE AT 0000.
--- NOTE | 2019-12-28 06:12 | NUR ---
PATIENT IS PROGRESSING IN HER CARE PLAN. VITAL SIGNS STABLE WITH PATIENT HAVING NO COMPLAINTS OF PAIN OR NAUSEA. ORIENTED TO SELF, AND THAT SHE IS IN THE HOSPITAL, PATIENT IS PLEASANTLY CONFUSED. BREATHING STABLE ON NASAL CANNULA EVIDENCED BY ASSESSMENT AND CONTINUOUS SATURATION MONITOR. COMPLETE BED BATH GIVEN WITH PATIENT FREQUENTLY REPOSITIONED TO PROTECT SKIN. CONTINUE PLAN OF CARE.
--- NOTE | 2019-12-28 10:14 | NUR ---
DOING WELL. WAITING ON THERAPIES TO WORK W PT. VERY FATIGUED,VERY WEAK.INTERACTS WELL. IN EARLIER.--VW
--- NOTE | 2019-12-28 11:36 | NUR ---
ON-GOING ASSESSMENT: CM REVIEWED CHART AND SPOKE WITH ATTENDING. PT IS SLOWLY PROGRESSING TOWARDS DISCHARGE GOALS. PLANS ARE FOR PATIENT TO LIKELY TRANSFER OUT OF THE ICU TODAY. PSYCH HAS BEEN CONSULTED AND WILL SEE HER TODAY. CM FAXED UPDATED CLINICAL TO [facility] AND LEFT A VM FOR NICHOLAS THERE THAT PATIENT MAY BE READY FOR DISCHARGE OVER THE WEEKEND IF SHE CONTINUES TO IMPROVE. HUY ALSO LEFT A VM WITH Loy MENDOZA TO NOTIFY HIM AND UPDATE HIM ON PATIENT.
--- NOTE | 2019-12-28 12:29 | EKG ---
[facility] [address] [place] [address] ELECTROCARDIOGRAM REPORT Name: [facility] Room #: 244-P ADM IN M.R.#: [id number] Admission: 12/17/19 Attend Phys: Fuentes Dubon MD Discharge: Date of : 53 Report #: [id number] THIS REPORT FOR: cc: FAM - Family physician unknown FAM - Family physician unknown Oleg Mendez MD ~ THIS REPORT FOR: //name// [facility] Test Date: 2019-12-28 Test Time: 08:29:05 Pat Name: MARISSA GABRIELLE Department: Room: 244 Gender: F Card Decorator: Alize DEL CID : [id number] Requested By: Radha Fisher Order Number: [id number] MD: Oleg Mendez Measurements Intervals [place] Rate: 70 P: 35 TN: 144 QRS: -26 QRSD: 97 T: 124 QT: 374 QTc: 404 Interpretive Statements Sinus rhythm Probable left atrial enlargement LVH with secondary repolarization abnormality Baseline wander in lead(s) V2 Compared to ECG 12/21/2019 03:19:33 Left ventricular hypertrophy now present Early repolarization now present Intraventricular conduction delay no longer present Electronically Signed On 12-28-2019 12:27:26 CDT by Oleg Mendez [email or web address] <ELECTRONICALLY SIGNED> By: Oleg Mendez MD 12/28/19 1227 8 8 Oleg Mendez MD /EPI
--- NOTE | 2019-12-28 13:51 | NUR ---
DINO EDWARDSKO IN ~1240. IN CURRENTLY. PT EXHAUSTED,SETTLED FOR NAP.--VW
[2019-12-29] VITALS (11 sets, daily range): BP systolic 92–129; BP diastolic 40–61
--- NOTE | 2019-12-29 04:13 | NUR ---
ASSUMED PT CARE AT 1900, PT IS AWAKE, ALERT AND OERIENTED TO SELF AND KNOWS THAT SHE IS IN THE HOSPITAL, VSS, ASSESSMENTS CHARTED, DENIES PAIN, SOB OR NAUSEA, PT STILL WEAK,02 SATS STABLE ON 3L NC, NO DISTRESS NOTED, WILL CONTINUE TO MONITOR
--- NOTE | 2019-12-29 08:13 | NUR ---
PATIENT DROWSY BUT AROUSES EASILY, ORIENTED TO PERSON. DENIES PAIN AND VITALS STABLE. ASSESSEMENT DOCUMENTED. WILL CONTINUE WITH POC.
--- NOTE | 2019-12-29 12:00 | NUR ---
FAXED CLINICAL UPDATE TO [facility] RECEIVED CONFIRMATION. PT TO POSS DC SAT/WEDNESDAY BACK TO [facility]. IF PT DISCHARGES PLEASE FAX DC ORDERS/SUMMARY FAX: [phone] AND CALL [phone] TO NOTIFY OF DC AND CALL [facility] TO SET UP TRANSPORTATION [phone].
--- NOTE | 2019-12-29 13:16 | NUR ---
PATIENT TRANSFERRED TO [facility] WITH BELONGINGS.
--- NOTE | 2019-12-29 15:14 | NUR ---
COMPA reviewed chart and spoke with attending physician. Pt is progressing towards goals for discharge. Possible weekend discharge back to [facility] if pt is medically stable. Pt transferred from ICU to CCU earlier today. COMPA notified Manuel Kirk with the [facility] PA office of possible weekend discharge. Manuel gives consent for discharge if needed. IF PT DISCHARGES PLEASE FAX DC ORDERS/SUMMARY FAX: [phone] AND CALL [phone] TO NOTIFY OF DC AND CALL [facility] TO SET UP TRANSPORTATION [phone]. ALSO FAX DISCHARGE ORDERS/SUMMARY TO THE [facility] PUBLIC INVENTORY MANAGEMENT SPECIALIST'S OFFICE: [phone].
--- NOTE | 2019-12-29 19:39 | NUR ---
PT TRANSFER FROM ICU AT APPROX 1300. PT AWAKE, ALERT TO SELF, CONFUSED. O2 SATS WNL ON 3LO2. VSS. PT VERY WEAK. GUERRA REMAINS IN PLACE. PT HAD LARGE LOOSE BM. APPETITE ADEQUATE, TOLERATING MEALS WELL. DENIES C/O PAIN. DENIES CP/SOB. PT CURRENTLY RESTING IN BED. SHIFT REPORT PASSED TO ARMEN TREJO.
[2019-12-30 00:18] VITALS: BP 122/60
--- NOTE | 2019-12-30 04:32 | NUR ---
ASSESSMENT DOCUMENTED.PT RESTING IN NO ACUTE DISTRESS.A/OX2,CONFUSED.PT THIKING THAT HER BROTHER CALLED POLICE ON HER TO BE BROUGHT UP HERE,REORIENTED ON THE SITUATION AND POC.DENIES PAIN.TURNED AND REPOSTIONED Q2H.REMAINS ON O2 AT 3LITERS PNC,NO RESP DISTRESS.POC IS TO CONTINUE WITH TX.PT PROGRESSING SLOWLY TO GOALS.WILL CONT TO MONITOR
[2019-12-30 05:01] VITALS: BP 121/59
[2019-12-30 05:39] LABS: HEMATOCRIT 43.1 % (37.0-47.0); HEMOGLOBIN 14.2 gm/dL (12.0-15.0); MCH 30.9 pg (26.0-34.0); MCHC 32.9 g/dL (28.0-37.0); MCV 94.1 fL (80.0-100.0); RBC 4.58 mil/uL (4.20-5.00); RDW 15.2 % (10.5-14.5); WBC 10.6 thou/uL (4.0-11.0)
[2019-12-30 05:49] LABS: CALCIUM 8.6 mg/dL (8.5-10.1); CREATININE 0.6 mg/dL (0.6-1.0); MAGNESIUM 2.1 mg/dL (1.8-2.4); POTASSIUM 4.5 mmol/L (3.5-5.1)
[2019-12-30 07:00] VITALS: BP 118/66
[2019-12-30 11:00] VITALS: BP 101/52
[2019-12-30 17:15] VITALS: BP 130/63
[2019-12-30 19:00] VITALS: BP 123/58
--- NOTE | 2019-12-30 19:28 | NUR ---
ASSUMED CARE OF PATIENT AT 0700. ASSESSMENT COMPLETED. PATIENT IS SA WITH HR IN THE 70-80S ON TELE WITH PVC. GUERRA CATHETER PATENT. DENIES ANY PAIN. PATIENT IS A FEEDER AND TOTAL CARE. PATIENT TO CONTINUE WITH POC.
[2019-12-31 04:00] VITALS: BP 130/66
--- NOTE | 2019-12-31 06:30 | NUR ---
ASSESSMENT DOCUMENTED.PT RESTED IN NO ACUTE DISTRESS.A/OX2-3.VSS.PT DENIES ANY NEEDS AT THIS TIME.POC IS TO DISCHARGE BACK TO [facility] WHEN STABLE.
[2019-12-31 07:10] VITALS: BP 117/59
[2019-12-31 11:00] VITALS: BP 123/64
[2019-12-31 16:00] VITALS: BP 134/69
[2019-12-31 19:22] VITALS: BP 148/79
--- NOTE | 2019-12-31 20:23 | NUR ---
ASSUMED CARE OF PATIENT AT 0700. ASSESSMENT CHARTED. PATIENT ALERT TO SELF AND SITUATION AT TIMES. Q2 TURNS PERFORMED BY AID AND MYSELF. PATIENT'S MEDS CRUSHED AND GIVEN WITH APPLESAUCE. PATIENT DENIES ANY PAIN. PATENT GUERRA. PATIENT HAS UE TREMORS WHICH MAKES HER UNABLE TO FEED SELF, AID FED PATIENT ALL MEALS. PATIENT TO CONTINUE WITH POC.
[2020-01-01 04:59] VITALS: BP 144/77
--- NOTE | 2020-01-01 07:57 | NUR ---
PT RESTING QUIETLY IN ROOM REPOSITIONING Q2H AND NEEDED, GUERRA WITH ADEQUATE UP, VSS, BED ALARM ON, NS INFUSING THRI R IJ TKO, WILL CON'T TO MONITOR PER PPOC.
[2020-01-01 08:00] VITALS: BP 133/66
[2020-01-01 12:00] VITALS: BP 140/74
[2020-01-01 15:11] LABS: URINE BILIRUBIN NEGATIVE (Negative); URINE BLOOD 3+ (Negative); URINE COLOR YELLOW; URINE GLUCOSE-RANDOM* NEGATIVE (Negative); URINE KETONES NEGATIVE (Negative); URINE LEUKOCYTES TRACE (Negative); URINE NITRITE NEGATIVE (Negative); URINE PROTEIN (DIPSTICK) NEGATIVE (Negative); URINE SPECIFIC GRAVITY 1.015 (1.005-1.035); URINE UROBILINOGEN >= 8.0 E.U./dl (0.2-1.0)
[2020-01-01 15:14] LABS: URINE CLARITY SL HAZY
[2020-01-01 15:20] LABS: BACTERIA >30 Many /HPF (None Seen); CASTS None Seen /LPF (None Seen); CRYSTALS None Seen /LPF (None Seen); SQUAMOUS 0-3 Few /LPF (0-3); URINE WBC 0-5 Rare /HPF (0-5)
[2020-01-01 16:00] VITALS: BP 131/59
--- NOTE | 2020-01-01 16:18 | NUR ---
tenative plan for patient to dc. 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 She is on locked unit but able to go outside and smoke. Patient with behaviors of cussing at staff at [facility]. Dr Fish saw patient today and she is extemenly weak unable to feed herself. SP with admissions at [facility] and faxed updated therapy evals for review. They plan to review if can meet needs. [facility] is medicare A certified. Casemgt following.
--- NOTE | 2020-01-01 18:03 | NUR ---
ASSUMED CARE PT SHIFT CHANGE. ASSESSMENTS CHARTED.MEDS GIVEN PER MAR. VSS. PT ALERT TO SELF AND PLACE. CONFUSED. O2 SATS WNL 2-3LO2. DENIES PAIN. DENIES SOB. PT WORKED WITH OT AND PHYS THERPAY TOLERATING FAIR. PT WAS ABLE TO FEED SELF MOST FOOD FOR ALL MEALS. UA COLLECTED. ORDERS RECEIVED. PT CURRENTLY UP IN BED FEEDING SELF DINNER. DENIES CONCERNS. MONITORING CONTINOUSLY. WILL PASS ON REPORT TO NOC NURSE.
[2020-01-01 20:15] VITALS: BP 133/84
--- NOTE | 2020-01-02 02:30 | NUR ---
ASSESSMENT DOCUMENTED.PT BEEN RESTING IN NO ACUTE DISTRESS.A/OX2-3,WITH CONFUSION.PT MORE VERBAL AND AWAKE.CO-OPERATIVE WITH CARE.PT STILL NEEDING HELP WITH ACTIVITIES AND EATING.TOTAL CARE WITH ADLS.DENIES PAIN OR ANY DISTRESS AT THIS TIME.PT PRGRESSING TOWARDS DISCHARGE GOALS SLOWLY.
[2020-01-02 04:45] VITALS: BP 127/56
[2020-01-02 05:57] LABS: HEMATOCRIT 42.4 % (37.0-47.0); MCH 30.8 pg (26.0-34.0); MCV 93.3 fL (80.0-100.0); RBC 4.54 mil/uL (4.20-5.00); RDW 15.1 % (10.5-14.5); WBC 6.4 thou/uL (4.0-11.0)
[2020-01-02 06:10] LABS: CALCIUM 8.9 mg/dL (8.5-10.1); CREATININE 0.6 mg/dL (0.6-1.0); POTASSIUM 4.2 mmol/L (3.5-5.1)
[2020-01-02 08:00] VITALS: BP 131/73
[2020-01-02 12:30] VITALS: BP 132/61
--- NOTE | 2020-01-02 13:56 | NUR ---
Faxed pertinent information to [facility] yesterday to assure can meet patients rehab needs. SP with Jennifer diaz who planned to forward to [facility] to call casemgt. That did not happen. Called [facility] this am and reviewed level of care. [facility] reports they can accept patient medicare A for therapies fabrication supervisor reports did not rec theapy eval yesterday. DC planner internship to fax again today. [facility] requests dc in am. Reviewed with phys who is in agreement. Pertinend information to be faxed to [facility].
--- NOTE | 2020-01-02 14:01 | NUR ---
FAXED CLINICAL UPDATE TO [facility] RECEIVED CONFIRMATION AND LEFT MSG WITH EDUARDO CHINCHILLA). ANTICIPATE DC TOMORROW DP TO FOLLOW.
[2020-01-02 17:15] VITALS: BP 129/55
--- NOTE | 2020-01-02 17:37 | NUR ---
ASSUMED CARE OF PT AT SHIFT CHANGE. ASSESSMENTS CHARTED. MEDS GIVEN PER OCT. PT A&OX2-3. NO C/O PAIN. PT WEAK WITH TREMORS. WORKED WITH PT/OT WELL. CM LOOKING INTO REHAB AT [facility], PT'S PLACE OF RESIDENCE. WILL CONTINUE TO MONITOR AND FOLLOW POC.
[2020-01-02 20:05] VITALS: BP 121/57
--- NOTE | 2020-01-03 04:50 | NUR ---
ASSUMED PT CARE AT 1900. PT IS ALERT UPON ARRIVAL TO ROOM. NO SIGN OF DISTRESS NOTED IN PT. DENIES ANY PAIN. PT WAS CONFUSED, UNABLE TO STATE WHERE SHE WAS AND HER NAME, AND REALLT PARANOID. PT IS STABLE. FALL PRECAUTION IN PLACE. ASSESSMENT COMPLETED AND DOCUMENTED. SCHEDULED MEDS ADMINISTERED TO PT. TOLERATED PO INTAKE. DENIES ANY FURTHER NEEDS AT THIS TIME.
[2020-01-03 05:00] VITALS: BP 112/68
[2020-01-03] MEDS ORDERED: PACERONE 200 M200 M1 PO (08:09)
[2020-01-03] MEDS ORDERED: CARVEDILOL3.125 MG PO (08:09)
[2020-01-03] MEDS ORDERED: KEFLEX500 M1 PO (08:09)
[2020-01-03] MEDS ORDERED: LISINOPRIL5 MG PO (08:10)
[2020-01-03 08:24] VITALS: BP 118/62
[2020-01-03 09:19] VITALS: BP 118/62
--- NOTE | 2020-01-03 10:25 | NUR ---
PT DISCHARGING TODAY BACK TO [facility] FAXED DC ORDERS/SUMMARY TO FACILITY SPOKE WITH NICHOLAS IN ADM AND LEFT MSG WITH EDUARDO ([facility]) THAT TRANSPORT ARRANGED WITH [facility] BY [facility] FOR 1045. ZIYAD (COMPA) NOTIFIED PT'S GUARDIAN (ALEXANDRA ROCHE) OF DISCHARGE. UNIT NOTIFIED AND CHART COPY PER US. RN TO CALL REPORT TO [phone].
== END 2020-01-03 11:30 | DRG 207 ==
LOC: ER 17:35 → EROBS 18:49 → ICU 18:49 → 2N 12-29 13:15
PROVIDERS: Hospitalist; Internal Medicine Pulmonary Disease; Nurse Practitioner; Nurse Practitioner Family; Pediatrics; Physician Assistant; Psychiatry & Neurology Psychiatry; ADMIT Internal Medicine
PROC: 5A09357 Assistance with Respiratory Ventilation, Less than 24 Consecutive Hours, Continuous Positive Airway Pressure (ICD-10-PCS; 2019-12-17)
PROC: B548ZZA Ultrasonography of Superior Vena Cava, Guidance (ICD-10-PCS; principal; 2019-12-18)
PROC: 0BH17EZ Insertion of Endotracheal Airway into Trachea, Via Natural or Artificial Opening (ICD-10-PCS; principal; 2019-12-18)
PROC: 5A1955Z Respiratory Ventilation, Greater than 96 Consecutive Hours (ICD-10-PCS; principal; 2019-12-18)
PROC: 03HY32Z Insertion of Monitoring Device into Upper Artery, Percutaneous Approach (ICD-10-PCS; principal; 2019-12-18)
PROC: 02HV33Z Insertion of Infusion Device into Superior Vena Cava, Percutaneous Approach (ICD-10-PCS; principal; 2019-12-18)
PROC: 0D9670Z Drainage of Stomach with Drainage Device, Via Natural or Artificial Opening (ICD-10-PCS; principal; 2019-12-18)
DX: J69.0 Pneumonitis due to inhalation of food and vomit (principal); J96.02 Acute respiratory failure with hypercapnia; R57.0 Cardiogenic shock; J96.01 Acute respiratory failure with hypoxia; G93.40 Encephalopathy, unspecified; E46 Unspecified protein-calorie malnutrition; F20.0 Paranoid schizophrenia; I47.2 Ventricular tachycardia; I50.9 Heart failure, unspecified; E66.9 Obesity, unspecified; F99 Mental disorder, not otherwise specified; E83.42 Hypomagnesemia; R91.1 Solitary pulmonary nodule; D69.6 Thrombocytopenia, unspecified; I95.9 Hypotension, unspecified; E87.6 Hypokalemia; I45.81 Long QT syndrome; R41.0 Disorientation, unspecified; Z20.828 Contact with and (suspected) exposure to other viral communicable diseases; Z68.29 Body mass index [BMI] 29.0-29.9, adult; Z71.6 Tobacco abuse counseling; Z79.899 Other long term (current) drug therapy; I11.0 Hypertensive heart disease with heart failure
CPT/HCPCS: 10078; 10081

== ENCOUNTER 2020-01-17 15:32 | Inpatient (IN) | payer OTHER ==
[~2020-01-17] VITALS: Ht 152.4 cm; Wt 80.7 kg
[~2020-01-17 15:32] MED LIST: ARISTADA882 MG/3.2 IM; ASA81BEC PO; BENZTROPINE ME0.5 MG PO; CARVEDILOL3.125 MG PO; DEPAKOTE ER500 M1 PO; FUROSEMIDE 40 M40 MG PO; HALOPERIDOL2 MG/1 ML PO; KEFLEX500 M1 PO; LISINOPRIL5 MG PO; LORAZEPAM 0.50.5 MG PO; MELOXICAM7.5 MG PO; PACERONE 200 M200 M1 PO; PAIN RELIEF325 MG PO; RISPERDAL 3 MG T3 MG PO; SPIRONOLACTONE25 MG PO; TOPROL XL25 MG PO
[2020-01-17 15:43] VITALS: BP 130/66
[2020-01-17] MEDS ORDERED: COL-RITE100 MG PO (16:02)
[2020-01-17] MEDS ORDERED: FAMOTIDINE 20 M20 MG PO (16:03)
[2020-01-17] MEDS ORDERED: SLOW FE142 MG PO (16:04)
[2020-01-17] MEDS ORDERED: FLUOXETINE HCL40 MG PO (16:05)
[2020-01-17] MEDS ORDERED: LEVAQUIN 500 M500 M4 PO (16:05)
[2020-01-17 16:21] LABS: HEMATOCRIT 40.7 % (37.0-47.0); HEMOGLOBIN 13.3 gm/dL (12.0-15.0); MCH 31.1 pg (26.0-34.0); MCHC 32.6 g/dL (28.0-37.0); MCV 95.3 fL (80.0-100.0); PLATELET COUNT 142 thou/uL (150-400); RBC 4.27 mil/uL (4.20-5.00); RDW 15.5 % (10.5-14.5); WBC 4.4 thou/uL (4.0-11.0)
[2020-01-17 16:25] LABS: ANION GAP 1 mmol/L (7-16); BUN 19 mg/dL (7-18); CALCIUM 9.4 mg/dL (8.5-10.1); CHLORIDE 103 mmol/L (98-107); CO2 39 mmol/L (21-32); CREATININE 0.6 mg/dL (0.6-1.0); GLUCOSE 99 mg/dL (74-106); POTASSIUM 4.5 mmol/L (3.5-5.1); SODIUM 143 mmol/L (136-145)
[2020-01-17 16:30] LABS: ALBUMIN 2.7 g/dL (3.4-5.0); DIRECT BILIRUBIN < 0.1 mg/dL (<0.1-0.2); LIPASE 132 U/L (73-393); SGOT 17 U/L (15-37); SGPT 21 U/L (30-65); TOTAL BILIRUBIN 0.3 mg/dL (<0.1-1.0); TOTAL PROTEIN 7.1 g/dL (6.4-8.2)
[2020-01-17 16:42] LABS: BE(vivo) 7.6 mmol/L (-2 to +3); HCO3 36.2 mmol/L (22.0-26.0); PCO2 71.2 mmHg (35.0-45.0); pH 7.324 (7.360-7.450); sO2 98.2 % (92.0-98.0)
[2020-01-17 16:53] LABS: ABSOLUTE NEUTROPHILS 2.1 thou/uL (1.4-8.2)
[2020-01-17 16:59] LABS: URINE BILIRUBIN NEGATIVE (Negative); URINE BLOOD NEGATIVE (Negative); URINE CLARITY CLEAR; URINE COLOR YELLOW; URINE GLUCOSE-RANDOM* NEGATIVE (Negative); URINE KETONES NEGATIVE (Negative); URINE LEUKOCYTES-REFLEX NEGATIVE (Negative); URINE NITRITE-REFLEX NEGATIVE (Negative); URINE PROTEIN (DIPSTICK) NEGATIVE (Negative); URINE SPECIFIC GRAVITY >= 1.030 (1.005-1.035)
--- NOTE | 2020-01-17 17:00 | NUR ---
Report received from MAYA Watkins
[2020-01-17 17:07] LABS: AMP/METHAMP Negative (Negative); BARBITURATES Negative (Negative); BENZODIAZEPINES Negative (Negative); COCAINE Negative (Negative); METHADONE Negative (Negative); OPIATES Negative (Negative); PCP Negative (Negative)
--- NOTE | 2020-01-17 17:24 | NUR ---
Per NH nurse, yesterday pt was hypoxic on room air at 86 percent. Pt was placed on 2 L NC. This AM pt appeared lethargic per NH. After lunch, pt was "drooling and lethargic". Urinary catheter was removed yesterday but pt did not urinate following removal. per NH BP was WNL and pt was afebrile.
--- NOTE | 2020-01-17 17:24 | NUR ---
NH nurse reports they contacted pt's guardian to tell him patient was being transferred to ER.
[2020-01-17] MEDS ORDERED: ABILIFY 5 MG TAB5 MG PO (17:48)
[2020-01-17] MEDS ORDERED: KLOR-CON 1010 MEQ PO (17:49)
[2020-01-17] MEDS ORDERED: TRAZODONE HCL50 MG PO (17:50)
[2020-01-17] MEDS ORDERED: LORAZEPAM 0.50.5 MG PO (17:51)
--- NOTE | 2020-01-17 18:02 | NUR ---
Crys, from [facility], reports baseline is transferring with two assist and pt's baseline mentation is alert and oriented x 4. Reports pt was at [facility] for hypoxemia and weakness.
[2020-01-17 19:13] VITALS: BP 118/48
--- NOTE | 2020-01-17 19:17 | NUR ---
Attempted to call report to inpatient nurse. Nurse reports will call back
[2020-01-17] MEDS ORDERED: CLOZARIL50 MG PO (19:22)
[2020-01-17] MEDS ORDERED: CLOZARIL200 MG PO (19:22)
--- NOTE | 2020-01-17 19:26 | NUR ---
Pt's on updated on patient status.
[2020-01-17 19:50] VITALS: BP 136/65
[2020-01-17 20:32] VITALS: BP 137/61
[2020-01-17 20:48] LABS: HCO3 38.6 mmol/L (22.0-26.0); PO2 110.1 mmHg (80.0-100.0); pH 7.356 (7.360-7.450); sO2 97.7 % (92.0-98.0)
[2020-01-17 20:49] LABS: PCO2 70.6 mmHg (35.0-45.0)
[2020-01-18 00:45] VITALS: BP 137/73
[2020-01-18 04:45] VITALS: BP 116/57
[2020-01-18 04:58] LABS: ABSOLUTE NEUTROPHILS 2.4 thou/uL (1.4-8.2); BASOPHILS 0.2 % (0.0-2.0); HEMATOCRIT 39.5 % (37.0-47.0); LYMPHOCYTES 19.4 % (24.0-44.0); MCH 31.3 pg (26.0-34.0); MCHC 32.9 g/dL (28.0-37.0); MONOCYTES 1.7 % (1.0-8.0); PLATELET COUNT 150 thou/uL (150-400); POLYS 78.7 % (36.0-66.0); RBC 4.16 mil/uL (4.20-5.00); WBC 3.1 thou/uL (4.0-11.0)
--- NOTE | 2020-01-18 05:51 | NUR ---
PATIENTS CARES WERE ASSUMED AFTER A TRANSFER FROME ED. PATIENT WAS ASSESSEED AND MEDS WERE PASSED. PATIENTS SON WAS CALLED AND HE STATED HIS MOTHER IS A TRIPLETT OF THE STATE. DATASTAGE ARCHITECT WAS CALL AND NO ANSWER. TRY TO CALL THE [facility] WERE SHE LIVES NO ANSWER. ADMISSION DONE TO THE BEST OF MY ABILITY DUE TO PATIENT IS NON VERBAL AT THIS TIME. ASSESSMENT IS DOCUMENTED. WHEN DATASTAGE ARCHITECT OF THE [facility] SHOWS HE WILL BE THE ONE FOR CONCENTS AND INFORMATION. HOURLY ROUNDING DONE. THE BED IS IN A LOW AND LOCKED POSITION
[2020-01-18 06:05] LABS: CALCIUM 9.4 mg/dL (8.5-10.1); CREATININE 0.6 mg/dL (0.6-1.0); MAGNESIUM 1.8 mg/dL (1.8-2.4); POTASSIUM 4.4 mmol/L (3.5-5.1)
[2020-01-18 07:20] VITALS: BP 103/72
--- NOTE | 2020-01-18 08:44 | NUR ---
ASSUMED CARE OF PT AT SHIFT CHANGE, DIDN'T SLEEP MUCH LAST NIGHT, ASLEEP NOW WITH BIPAP, ORDERS NOTED, NO DIET, COMM W/PHYSICIAN TO ASK IF SHE WILL GET ONE. MUCH IS UNK AT THIS TIME, PT IN NO DISTRESS, BREATHING CALMLY, BLINDS OPENED TO ALLOW FOR SLOWER WAKENING. LATER, WHEN TIME DESTIN, WILL CALL HER FACILITY TO ASK ABOUT DIET/FEEDING. SEE SEPARATE INTEREVENTIONS FOR ASSESSMENTS. WOUND CONSULT ENTERED FOR BUTTOCK WOUNDS REPORTED, HAS FEMALE EXTERNAL CATHETER W/MINIMAL OUTPUT, IVF D/C'D. WILL CONTINUE TO MONITOR
--- NOTE | 2020-01-18 09:48 | NUR ---
WOUND CARE CONSULT; BILATERAL BUTTOCKS WOUNDS IDENTIFIED. THE WOUNDS ALL HAVE FRAYED WOUND EDGES SUGGESTIVE OF FRICTION BUT CANNOT RULE OUT PRESSURE. THE WOUNDS SHOW NO S/S OF INFECTION. RECOMMENDATION; 1-ZGUARD/SACRAL FOAM DAILY/PRN 2-LOW AIR LOSS PUMP. 3-TURN Q2H RN PRESENT
[2020-01-18 11:00] VITALS: BP 126/54
--- NOTE | 2020-01-18 15:05 | NUR ---
ASSESSMENT: CM REVIEWED CHART. 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 PT HAS A PAST HX OF SCHIZOAFFECTIVE DISORDER. PT WAS RECENTLY AT [facility]. PT HAS A PUBLIC PUBLICATIONS DISTRIBUTION CLERK ALEXANDRA PIPER AND CM CONTACTED THE PA OFFICE TO VERIFY THEY WERE AWARE OF ADMISSION. PT WAS PLACED ON THE BIPAP TODAY. PULM HAS ALSO BEEN CONSULTED FOR PATIENT. CM REACHED OUT TO NICHOLAS IN ADMISSION AT [facility] TO UPDATE ON INFORMATION WELL FAX CLINICAL ON PATIENT. CM NOTIFIED HER THAT PATIENT IS ON BIPAP HERE AND NEEDED TO CLARIFY IF PATIENT WERE TO POSSIBLY NEED A CPAP AT BEDTIME AT DISCHARGE IF THEY COULD ACCOMIDATE THAT THERE SINCE IT IS A [facility]. NICHOLAS STATES SHE HAD TO CHECK WITH THE CHARGE NURSE AND RETURNED CALL TO HUY STATING IF PATIENT WERE TO NEED A CPAP SHE WOULD LIKELY BE ABLE TO HAVE ONE THERE. NICHOLAS STATING SHE GOT AN EMAIL THAT [facility] WAS WANTING TO DO AN EVAL ON PATIENT. HUY STATED THAT CM HAS NOT SENT ANY REFERRAL FOR HOSPICE AND NICHOLAS IN ADMISSION IS UNCLEAR HOW [facility] WAS NOTIFIED OF THIS PATIENT. HUY STATED THAT HOSPICE SHOULD NOT SEE PATIENT PT HAS A PA AND WOULD NEED TO BE CLEARED THROUGH THEM PRIOR TO SEEING PATIENT AND PHYSICIANS HERE HAVE NOT MENTIONED HOSPICE HERE EITHER. CM FAXED CLINICAL TO [facility], CM WILL CONTINUE TO FOLLOW TO ASSIST NEEDED.
[2020-01-18 16:40] VITALS: BP 97/49
--- NOTE | 2020-01-18 19:17 | NUR ---
PT'S 02 SAT: PT STATES SHE DOES NOT WEAR 02 AT HOME, RT REMOVED PT FROM 02 PER HER SATURATION WNL, 20 MIN LATER PHYSICAL THERAPY CAME BY PT DESATTED TO 84% OFF 02. GAVE REPORT TO NIGHT RN. PT HAS CALL LIGHT CLOSE BY AND TELEPHONE SHE'S BEEN CALLING FRIENDS/FAMILY
[2020-01-18 20:15] VITALS: BP 124/69
[2020-01-19 00:45] VITALS: BP 106/59
--- NOTE | 2020-01-19 00:57 | NUR ---
PATIENTS CARES WERE ASSUMED AT SHIFT CHANGE. PATIENT WAS ASSESSED AND MEDS WERE PASSED. THIS PATIENT IS SHOWING MUCH IMPROVEMENT COMPAIRED TO LAST NIGHT WHEN SHE WAS ADMITTED TO THE FLOOR. WILL CONTINUE TO REQUEST SLEEP STUDY TEST TO SHOW AT TIMES SHE DOES DESTAT. WILL CONTINUE TOWARDS THE DISCHARGE PLAN. HOURLY ROUNDS WERE DONE. THE BED IS IN A LOW AND LOCKED POSITION. THE BED ALARM IS ON.
[2020-01-19 04:45] VITALS: BP 109/55
--- NOTE | 2020-01-19 05:23 | NUR ---
SLEPT MOST OF SHIFT. DENIES COMPLAINTS OF PAIN OR SHORTNESS OF AIR. ASSIST TO REPOSITIONE PRN. WORKING ON GOALS AND PLAN OF CARE FOR NOC. PROGRESSING SLWOLY TOWARDS DISCHARGE GOALS. CONTINUE TO ASSES CLOSELY.
[2020-01-19 07:47] VITALS: BP 117/40
[2020-01-19 11:17] LABS: HEMATOCRIT 41.8 % (37.0-47.0); HEMOGLOBIN 13.7 gm/dL (12.0-15.0); MCH 30.8 pg (26.0-34.0); MCHC 32.7 g/dL (28.0-37.0); MCV 94.2 fL (80.0-100.0); RBC 4.44 mil/uL (4.20-5.00); RDW 15.2 % (10.5-14.5); WBC 7.7 thou/uL (4.0-11.0)
[2020-01-19 11:28] LABS: CALCIUM 9.8 mg/dL (8.5-10.1); CREATININE 0.9 mg/dL (0.6-1.0); MAGNESIUM 1.8 mg/dL (1.8-2.4); POTASSIUM 3.8 mmol/L (3.5-5.1)
[2020-01-19 11:48] LABS: BE(vivo) 15.7 mmol/L (-2 to +3); HCO3 41.2 mmol/L (22.0-26.0); PCO2 53.4 mmHg (35.0-45.0); pH 7.505 (7.360-7.450)
[2020-01-19 11:52] LABS: PO2 0 mmHg (80.0-100.0)
--- NOTE | 2020-01-19 14:54 | NUR ---
Case discussed with the care team, Manuel Kirk from the Public Admin office, and Nini Cruz at [facility]. The PA's office aware of recommendations from the halfway and the attending for DNR and hospice referral. Manuel to fax over their DNR paperwork for the attending to complete. They are agreeable to hospice referral once the pt is stable to return to the halfway. [facility] indicates that they have been in touch with the in day cm Natalie Arias at the PA's office and will f/u once dc is indicated. No weekend dc indicated. Will forward the DNR paperwork to the attending for completion and refax it to Manuel for their approval. Manuel Kirk [phone] ( PA's Case mngr) Nini Cruz w/ [facility] [phone]
[2020-01-19 15:50] VITALS: BP 113/64
--- NOTE | 2020-01-19 16:12 | NUR ---
FAXED CLINICAL UPDATE TO [facility] RECEIVED CONFIRMATION AND LEFT MSG WITH NICHOLAS IN INTAKE. DP TO FOLLOW.
[2020-01-19 19:44] VITALS: BP 113/57
[2020-01-20 04:49] VITALS: BP 117/60
--- NOTE | 2020-01-20 06:34 | NUR ---
SLEPT MOST OF SHIFT. PRIOR TO BEDTIME WITH HS MEDS PATIENT UPSET WITH MEDICATIONS AND TIRED OF GETTING SHOTS. REASSURED. REPOSITIONED NEEDED FOR COMFORT AND SKIN CARE. WORKING ON GOALS AND PLAN OF CARE FOR NOC. WHEN IN DEEP SLEEP TELEMETRY SHOWS SB 45-50'S. DENIES FEELINGS OF DISCOMFORT. CONTINUE TO ASSES CLOSELY.
[2020-01-20 07:00] VITALS: BP 144/61
[2020-01-20 10:44] VITALS: BP 115/64
[2020-01-20 16:11] VITALS: BP 121/90
--- NOTE | 2020-01-20 16:20 | NUR ---
ASSUMMED PT CARE AT APPROXIMATELY 0700. PT A&O X4. FORGETFUL AT TIMES. PT FREQUENTLY TALKS TO HERSELF. ASSESSMENT CHARTED. FALL PRECAUTIONS IN PLACE. PT DENIES HAVING CHEST PAIN. PT DENIES HAVING SOB. PT DENIES HAVING ACUTE PAIN. EDUCATED PT ABOUT POC. VITAL SIGNS STABLE. BLOOD SUGARS STABLE. CALLED PT'S [facility] REGAURDING DNR FORMS. DID NOT HEAR BACK FROM [facility]. WOUND CARE GIVEN. PT COMFORTABLE IN BED. PT DENIES HAVING FURTHER CONCERNS.
[2020-01-20 19:11] VITALS: BP 130/80
--- NOTE | 2020-01-21 02:08 | NUR ---
PT LYING IN BED. DENIES PAIN. RESTING COMFORTABLY. NO NEEDS VOICED. CALL LIGHT WITHIN REACH. FREQUENT OBSERVATION.
[2020-01-21 05:33] VITALS: BP 133/56
[2020-01-21 07:20] VITALS: BP 132/63
[2020-01-21 10:30] VITALS: BP 112/46
--- NOTE | 2020-01-21 10:59 | NUR ---
ORIENTED TO SELF. COOPERATIVE. TALKS TO HERSELF. COMPLETE CARES. SB/SR PER TELE. WILL CONTINUE TO FOLLOW CLOSELY.
[2020-01-21 15:50] VITALS: BP 138/68
[2020-01-21 20:30] VITALS: BP 127/57
[2020-01-22 04:45] VITALS: BP 152/92
[2020-01-22 08:00] VITALS: BP 115/93
--- NOTE | 2020-01-22 10:10 | NUR ---
RAMBLING, NONSENSICAL SPEECH PERSISTS. COMPLETE CARES. SR/SB PER TELE. FALL PRECAUTIONS IN PLACE. WILL CONTINUE TO FOLLOW CLOSELY.
[2020-01-22 12:00] VITALS: BP 126/35
[2020-01-22 16:00] VITALS: BP 159/75
[2020-01-22 20:15] VITALS: BP 124/85
--- NOTE | 2020-01-23 03:44 | NUR ---
SLEPT MOST OF SHIFT. REMAINS CALM AND COOPERATIVE. REPOSITIONED NEEDED FOR COMFORT AND SKIN CARE. WORKING ON GOALS AND PLAN OF CARE FOR NOC. PROGRESSING SLOWLY TOWARDS DISCHARGE GOALS. REMAINS ORIENTED X4 BUT DOES TALK TO PEOPLE THAT ARE NOT THERE AT TIMES. CONTINUE TO ASSES CLOSELY.
[2020-01-23 04:15] VITALS: BP 122/55
[2020-01-23 07:45] VITALS: BP 134/87
--- NOTE | 2020-01-23 11:18 | NUR ---
WOUND CARE NOTE; ASSESSED BILAT BUTTOCK WOUNDS W/ MACHINE REPAIRMAN MONIKA, WOUNDS HEALING, PINK GRANULATING VIABLE TISSUE, SCANT DRAINAGE, NO S/S INFECTION, COOPERATIVE, ZGUARD AND SACRAL FOAM DRSG APPLIED RECOMMENDATIONS; CONT CURRENT TX OF ZGUARD AND SACRAL FOAM DAILY AND PRN, CONT PURE WICK, ENCOURAGED OFF LOADING, TURNING, CONT LOW AIR LOSS PUMP TO BED MACHINE REPAIRMAN AWARE
[2020-01-23 12:00] VITALS: BP 136/68
[2020-01-23] MEDS ORDERED: PREDNISONE 5 MG5 MG PO (13:43)
[2020-01-23] MEDS ORDERED: NICOTINE1 EAC2 TRANSDERM (13:43)
[2020-01-23] MEDS ORDERED: RISPERDAL 1 MG T1 MG PO (13:43)
--- NOTE | 2020-01-23 14:34 | NUR ---
Dr Jon completed DNR on 01/18 and faxed to PA office. He completed again today. SP with Azalia at PA office. SHe reports he answered a question that was not a definative yes/no. Dr Jon sp with PA office and discussed DNR form. At this time plan return to [facility] and cont to pursue DNR/hospice at [facility] were medical office scheduler and staff are more familiar with patient. Plan dc today.
--- NOTE | 2020-01-23 15:18 | NUR ---
PT DISCHARGING TODAY BACK TO [facility] FAXED DC ORDERS/SUMMARY TO FACILITY SPOKE WITH NICHOLAS IN ADM SHE RECEIVED ORDERS. TRANSPORT ARRANGED WITH [facility] #[id number] FOR [phone] TODAY. NOTIFIED UNIT AND CHART COPY PER US. DC ORDERS/SUMMARY FAXED TO PA'S OFFICE. RN TO CALL REPORT TO [phone].
[2020-01-23 17:00] VITALS: BP 136/68
== END 2020-01-23 16:51 | DRG 189 ==
LOC: ER 15:32 → EROBS 18:08 → 2N 18:08
PROVIDERS: Emergency Medicine; Nurse Practitioner; ADMIT Internal Medicine
PROC: 5A09357 Assistance with Respiratory Ventilation, Less than 24 Consecutive Hours, Continuous Positive Airway Pressure (ICD-10-PCS; principal; 2020-01-18)
PROC: 5A09357 Assistance with Respiratory Ventilation, Less than 24 Consecutive Hours, Continuous Positive Airway Pressure (ICD-10-PCS; 2020-01-19)
DX: J96.22 Acute and chronic respiratory failure with hypercapnia (principal); G92 Toxic encephalopathy; I50.22 Chronic systolic (congestive) heart failure; E87.2 Acidosis; I42.9 Cardiomyopathy, unspecified; F17.210 Nicotine dependence, cigarettes, uncomplicated; J96.21 Acute and chronic respiratory failure with hypoxia; F25.9 Schizoaffective disorder, unspecified; I11.0 Hypertensive heart disease with heart failure; R91.1 Solitary pulmonary nodule; Z20.828 Contact with and (suspected) exposure to other viral communicable diseases; R25.1 Tremor, unspecified; J44.9 Chronic obstructive pulmonary disease, unspecified; Z66 Do not resuscitate; Z51.5 Encounter for palliative care; Z79.82 Long term (current) use of aspirin; Z79.899 Other long term (current) drug therapy
CPT/HCPCS: 10081

== ENCOUNTER 2020-01-25 20:58 | Inpatient (IN) | payer OTHER ==
[~2020-01-25] VITALS: Ht 172.7 cm; Wt 161.0 kg
--- NOTE | ~2020-01-25 | EMS ---
[address] [address] EMS Patient Care Report Name: MARISSA ANTHONY [facility] [id number] Admission: 01/25/20 Attend Phys: Discharge: Date of : 53 Report #: [id number] THIS REPORT FOR: //name// Report Transmitted: 01/25/2020 21:40 EMS Care Summary [place], [place]/[facility] Incident [id number] @ 01/25/2020 20:35 Incident Location [address] [place] [address] Patient MARISSA ANTHONY Female, 64 Years 1955 Patient Address [address] [place], [place] [id number] Patient History Congestive Heart Failure (CHF),Hypertension (HTN),Paranoid Schizophrenia, Patient Allergies No known allergies, Patient Medications Fluoxetine, Divalproex Sodium, Haloperidol, Lorazepam, Furosemide, Acetaminophen, Trazodone, Meloxicam, Spironolactone, Amiodarone, Levofloxacin, Lisinopril, Carvedilol, Potassium, Simvastatin, Aspirin, Famotidine, Risperidone, Ferrous Sulfate, Docusate Sodium, Benztropine, Metoprolol, Aripiprazole, Chief Complaint UNRESPONSIVE Disposition Transported [place] Dispatch Reason Unconscious/Fainting Transported To [address] [address] EMS Patient Care Report Name: MARISSA ANTHONY Room #: REG CHARMAINE Ybarra#: [id number] Admission: 01/25/20 Attend Phys: Discharge: Date of : 53 Report #: [id number] Narrative RESPONDED TO UNCONSCIOUS AT [facility]. UPON ARRIVAL STAFF BROUGHT PT OUTSIDE IN WHEELCHAIR. PT IS HUNCHED OVER IN WHEELCHAIR WITH LOTS OF DROOL ON SHIRT, ONLY GROANS TO PAINFUL STIMULI. WHEN ASKED HOW LONG PT HAS BEEN IN THIS CONDITION STAFF MEMBER STATES, "I DON'T KNOW, AN HOUR OR TWO?" WHEN ASKED ANY OTHER QUESTIONS ABOUT PT CONDITION THE STAFF MEMBERS DID NOT KNOW AND COULD ONLY PRODUCE PT PAPERWORK. PT CARRIED TO COT AND NPA PLACED THEN PLACED ON NRB AT 15 LPM OF O2. PT VITALS, 3 LEAD, 12 LEAD AND IV OBTAINED. 12 LEAD REVEALED SINUS TACH WITH NO ST ELEVATION/DEPRESSION. PT TRANSPORTED TO [facility] WITH 1 RIDER. PT TEAM LIFTED TO BED AND HANDRAILS UP. REPORT GIVEN TO NURSE. Initial Vitals @20:46P: 107,Pain: 0/10,CO: 0,SpO2: 100,HI Suspected: false @20:43P: 106,BP: 141/77,SpO2: 100, @20:52P: 106,R: 44,CO: 2, @20:49P: 105,R: 37,CO: 1,SpO2: 100, @20:47P: 108,R: 31,CO: 2,SpO2: 96, @20:52P: 105,R: 42,BP: 111/68, @20:47P: 38,R: 20,BP: 147/79,Pain: 0/10,GCS: 5,Glucose: 194,SpO2: 97,Revised Trauma: 9, @20:50P: 107,R: 54,CO: 1, Assessments @20:41MENTAL:Unresponsive,SKIN:HEENT:Head/Face: No Abnormalities,Neck/Airway: No Abnormalities,LUNG SOUNDS:General: No Abnormalities,Left Upper: No Abnormalities,Right Upper: No Abnormalities,Left Lower: No Abnormalities,Right Lower: No Abnormalities,ABDOMEN:General: No Abnormalities,Left Upper: No Abnormalities,Right Upper: No Abnormalities,Left Lower: No Abnormalities,Right Lower: No Abnormalities,PELVIS//GI:Incontinence,EXTREMITIES:Left Arm: Other,Right Arm: Other,Left Leg: Other,Right Leg: Other,PULSE:NEURO:@20:46MENTAL:Unresponsive,SKIN:HEENT:Head/Face: No Abnormalities,Eyes: No Abnormalities,Neck/Airway: No Abnormalities,LUNG SOUNDS:General: No Abnormalities,Left Upper: No Abnormalities,Right Upper: No Abnormalities,Left Lower: No Abnormalities,Right Lower: No Abnormalities,ABDOMEN:General: No Abnormalities,Left Upper: No Abnormalities,Right Upper: No Abnormalities,Left Lower: No Abnormalities,Right Lower: No Abnormalities,PELVIS//GI:Incontinence,EXTREMITIES:Left Leg: Other,Right Arm: Other,Right Leg: Other,Left Arm: Other,PULSE:Radial: 2+ Normal,NEURO:No Abnormalities, Impression Altered Mental Status Procedures @20:4612-Lead ECGResponse: UnchangedSucceeded@20:453-Lead ECGResponse: UnchangedSucceeded@20:44Saline Lock 3cc (20 ga) Site: Antecubital-LeftResponse: [address] [address] EMS Patient Care Report Name: [facility] Room [facility]: [facility] CHARMAINE Ybarra#: [id number] Admission: 01/25/20 Attend Phys: Discharge: Date of : 53 Report #: [id number] UnchangedSucceeded@20:42Oxygen FlowRate: 15 Device: Non Re-breather Mask (NRB) Response: UnchangedSucceeded@20:42NPA Response: UnchangedSucceeded@20:41ALS AssessmentResponse: UnchangedSucceeded Timeline 20:33,Call Received 20:33,Dispatch Notified 20:35,Dispatched 20:36,En Route 20:40,On Scene 20:41,At Patient 20:41,ALS Assessment,Response: UnchangedSucceeded, 20:42,NPA Response: UnchangedSucceeded, 20:42,Oxygen FlowRate: 15 Device: Non Re-breather Mask (NRB) Response: UnchangedSucceeded, 20:43,BP: 141/77 M,PULSE: 106,RR: R,SPO2: 100 Ox,ETCO2: ,BG: ,PAIN: ,GCS: , 20:44,Saline Lock 3cc 20 ga Site: Antecubital-Left,Response: UnchangedSucceeded, 20:45,3-Lead ECG,Response: UnchangedSucceeded, 20:46,12-Lead ECG,Response: UnchangedSucceeded, 20:46,BP: / M,PULSE: 107,RR: R,SPO2: 100 Ox,ETCO2: ,BG: ,PAIN: 0,GCS: , 20:47,BP: 147/79 M,PULSE: 38,RR: 20 R,SPO2: 97 Ox,ETCO2: ,B,PAIN: 0,GCS: 5, 20:47,BP: / M,PULSE: 108,RR: 31 R,SPO2: 96 Ox,ETCO2: ,BG: ,PAIN: ,GCS: , 20:48,Depart Scene 20:49,BP: / M,PULSE: 105,RR: 37 R,SPO2: 100 Ox,ETCO2: ,BG: ,PAIN: ,GCS: , 20:50,BP: / M,PULSE: 107,RR: 54 R,SPO2: Ox,ETCO2: ,BG: ,PAIN: ,GCS: , 20:52,BP: / M,PULSE: 106,RR: 44 R,SPO2: Ox,ETCO2: ,BG: ,PAIN: ,GCS: , 20:52,BP: 111/68 M,PULSE: 105,RR: 42 R,SPO2: Ox,ETCO2: ,BG: ,PAIN: ,GCS: , 20:54,At Destination 21:21,Call Closed Disclaimer v1.1 Copyright 2020 [employer] This EMS Care Summary contains data elements from the applicable legal record (which may be displayed differently). It is designed to provide pertinent information for the following purposes: continuity of care, clinical quality, and state data reporting. The complete legal record is available to ED staff and administrators of the receiving hospital in ES's Patient Tracker. All data is provided "as is."
[~2020-01-25 20:58] MED LIST changes: +ABILIFY 5 MG TAB5 MG PO; +CLOZARIL200 MG PO; +CLOZARIL50 MG PO; +COL-RITE100 MG PO; +FAMOTIDINE 20 M20 MG PO; +FLUOXETINE HCL40 MG PO; +KLOR-CON 1010 MEQ PO; +LEVAQUIN 500 M500 M4 PO; +NICOTINE1 EAC2 TRANSDERM; +PREDNISONE 5 MG5 MG PO; +RISPERDAL 1 MG T1 MG PO; +SLOW FE142 MG PO; +TRAZODONE HCL50 MG PO
[2020-01-25 21:03] VITALS: BP 149/56
[2020-01-25 21:06] LABS: BE(vivo) 4.5 mmol/L (-2 to +3); HCO3 30.7 mmol/L (22.0-26.0); PCO2 51.4 mmHg (35.0-45.0); PO2 208.6 mmHg (80.0-100.0); pH 7.394 (7.360-7.450); sO2 99.4 % (92.0-98.0)
[2020-01-25 21:43] LABS: HEMATOCRIT 45.3 % (37.0-47.0); HEMOGLOBIN 14.8 gm/dL (12.0-15.0); MCH 30.7 pg (26.0-34.0); MCHC 32.6 g/dL (28.0-37.0); MCV 94.1 fL (80.0-100.0); PLATELET COUNT 214 thou/uL (150-400); RBC 4.82 mil/uL (4.20-5.00); RDW 15.6 % (10.5-14.5); WBC 12.6 thou/uL (4.0-11.0)
[2020-01-25 21:51] LABS: URINE BILIRUBIN NEGATIVE (Negative); URINE BLOOD NEGATIVE (Negative); URINE CLARITY CLEAR; URINE COLOR YELLOW; URINE GLUCOSE-RANDOM* NEGATIVE (Negative); URINE KETONES NEGATIVE (Negative); URINE LEUKOCYTES-REFLEX NEGATIVE (Negative); URINE NITRITE-REFLEX NEGATIVE (Negative); URINE PROTEIN (DIPSTICK) NEGATIVE (Negative); URINE SPECIFIC GRAVITY 1.015 (1.005-1.035); URINE UROBILINOGEN >= 8.0 E.U./dl (0.2-1.0)
[2020-01-25 21:55] LABS: ANION GAP 7 mmol/L (7-16); BUN 32 mg/dL (7-18); CALCIUM 9.3 mg/dL (8.5-10.1); CHLORIDE 98 mmol/L (98-107); CO2 35 mmol/L (21-32); CREATININE 1.2 mg/dL (0.6-1.0); GLUCOSE 185 mg/dL (74-106); POTASSIUM 3.4 mmol/L (3.5-5.1); SODIUM 140 mmol/L (136-145)
[2020-01-25 22:04] LABS: ALBUMIN 3.5 g/dL (3.4-5.0); DIRECT BILIRUBIN 0.2 mg/dL (<0.1-0.2); SGOT 18 U/L (15-37); SGPT 34 U/L (30-65); TOTAL BILIRUBIN 0.8 mg/dL (0.2-1.0); TOTAL PROTEIN 7.6 g/dL (6.4-8.2); TROPONIN-I <0.06 ng/mL (<0.06)
--- NOTE | 2020-01-25 22:06 | NUR ---
[facility]
--- NOTE | 2020-01-25 22:10 | NUR ---
I SPOKE TO KARLA BURCH AT [facility] ADMIN OFFICE. SHE GAVE CONSENT FOR MINIMALLY NONINVASIVE PROCEDURES SUCH BLOOD DRAWS AND CONFIRMED PATIENT IS A FULL CODE. HOSPITAL WILL NEED TO CALL BACK FOR FURTHER DETERIORATION OF PATIENT CONDITION REQUIRING FURTHER CONSENT.
[2020-01-25 22:12] LABS: ABSOLUTE NEUTROPHILS 8.9 thou/uL (1.4-8.2); ANISOCYTOSIS 1+; NUCLEATED RBCS 1 /100WBC
[2020-01-25 22:25] LABS: APTT 25.8 Seconds (24.5-32.8); PROTIME 10.7 Seconds (9.3-11.4)
--- NOTE | 2020-01-25 22:33 | NUR ---
I PAGED [facility] ADMIN AGAIN SO DR MENESES CAN TALK TO THEM HERSELF.
[2020-01-25] MEDS ORDERED: RISPERDAL 1 MG T1 MG PO (23:00)
[2020-01-25] MEDS ORDERED: NICOTINE PATCH TRANSDERM (23:00)
[2020-01-25] MEDS ORDERED: PREDNISONE 5 MG5 M1 PO (23:01)
[2020-01-25] MEDS ORDERED: PACERONE200 MG PO (23:03)
[2020-01-25] MEDS ORDERED: LISINOPRIL2.5 MG PO (23:03)
[2020-01-25] MEDS ORDERED: COL-RITE100 MG PO (23:04)
--- NOTE | 2020-01-25 23:32 | NUR ---
[facility] [phone] MENESES REQUEST
--- NOTE | 2020-01-25 23:37 | NUR ---
PUBLIC DIE OPERATOR HAS RETURNED CALL AND SPEAKING WITH DR MENESES
[2020-01-26 01:01] VITALS: BP 106/46
[2020-01-26 01:17] VITALS: BP 123/57
[2020-01-26 01:52] VITALS: BP 139/78
[2020-01-26 04:08] VITALS: BP 124/62
--- NOTE | 2020-01-26 07:58 | NUR ---
report from Stephani TREJO from ed pt being admitted with ams has been unresposive for almost a week at mt. vss bp elevated skin cool and moist. no apparent difficulty breathing. macerated pressure wound noted to bilateral buttocks, picture taken and placed in chart cleansed and barrier oitment applied. gonzalez in place draining yellow urine and ivf's infusing as order tele intact reading sr with rates in 60 to 80's contiue to monitor.
--- NOTE | 2020-01-26 08:13 | EKG ---
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 : 1955 Requested By: Rut Hamm Order Number: [id number] MD: Darell Olivares Measurements Intervals [place] Rate: 110 P: 52 WV: 145 QRS: -30 QRSD: 98 T: 123 QT: 361 QTc: 489 Interpretive Statements Sinus tachycardia Left atrial enlargement LVH with secondary repolarization abnormality Borderline prolonged QT interval Compared to ECG 12/28/2019 08:29:05 Heart rate has increased Electronically Signed On 01-26-2020 8:11:43 CDT by Darell Olivares [email or web address] <ELECTRONICALLY SIGNED> By: Darell Olivares MD, [facility] 01/26/20810 21 21 Darell Olivares MD, [facility] /EPI
[2020-01-26 08:23] VITALS: BP 127/72
--- NOTE | 2020-01-26 10:44 | NUR ---
PT ADMITTED RELATED TO AMD PT HAD BEEN HERE JUST RECENTLY AND DC'S BACK TO [facility] Wednesday01/23/20. CM CALLED AND SPOKE WITH GUARDIAN FARHEEN MENDOZA HE INDICATED THAT ER STAFF HAD REACHED OUT TO PA'S OFFICE AND HAD GOTTEN PERMISSION TO MAKE PT A DNR IN HOSPITAL AND OUT OF HOSPITAL. HE INDICATED THAT THAT HOSPICE CAN BE INITIATED THROUGH [facility] WAS NOTIFIED OF ADMISSION AND TO RETURN TO [facility]. CM TO FOLLOW INDICATED WITH DC PLANNING.
--- NOTE | 2020-01-26 12:11 | NUR ---
WOUND CARE CONSULT PT KNOWN TO THIS WOC NURSE JUST DC FROM HOSP ON 01/22, AWAKE BUT TALKING GIBBERISH, BILAT BUTTOCKS WOUNDS, PROBABLE PRESSURE INJURY VS SHEARING/FRICTION, SLIGHT IMPROVEMENT FROM DC 3 DAYS AGO, NO S/S INFECTION, COOPERATIVE RECOMMENDATIONS WILL ORDER LOW AIR LOSS PUMP, ZGUARD AND SACRAL BORDER FOAM DRSG DAILY AND PRN, TURN Q2 HOURS, OFF LOADING PEST TECHNICIAN INFORMED
--- NOTE | 2020-01-26 14:46 | NUR ---
PT IS ANTICPATED TO DC BACK TO [facility] TOMORROW [facility]. FINAL ORDERS WILL NEED TO BE FAXED TO [facility] AT , [place] AT , AND [facility]'S OFFICE AT . REPORT TO BE CALLED TO . CM TO ARRANGE STRETCHER VAN TRANSPORT THROUGH [facility] FOR TOMORROW. CHART COPY ORDERED.
--- NOTE | 2020-01-26 19:57 | NUR ---
Assumed pt care this am, inappropriate words and babbling when in the room. Pt is vonfused and angry wanting to eat only meat. FC removed, refused all oral meds. POC followed with no signs or verbalizations of distress noted. Seen by wound care dresing done by the tea.
--- NOTE | 2020-01-27 04:35 | NUR ---
ASSUMED PT CARE AROUND 1930. AXOX2. VSS. NO S/S ACUTE DISTRESS NOTED OR REPORTED AT THIS TIME. WILL CONT TO MONITOR FOR ANY CHANGES IN CONDITION.
[2020-01-27 08:02] VITALS: BP 128/73
[2020-01-27] MEDS ORDERED: SEROQUEL 100 M100 M1 PO (12:32)
[2020-01-27] MEDS ORDERED: IPRAT-ALBUT 0.5-3 ML INH (12:32)
[2020-01-27] MEDS ORDERED: BENZTROPINE MES1 MG PO (12:32)
--- NOTE | 2020-01-27 17:01 | NUR ---
Assumed pt care at 7am.Assessment completed.vss.Pt assisted with feeding and adl's.Received call form [facility] and updates given.Dr Jon here,dc order noted.[facility] notified about transporting pt to [facility] at 1500.Dc order faxed to both hospice and [facility].Saline lock dc'd and report off to El[facility] before pt dc at 1500 per non emergency ambulance.
--- NOTE | 2020-01-29 18:41 | EEG ---
[facility] [address] [place] [address] ELECTROENCEPHALOGRAM Name: [facility] Room #: [address] [place] [address] IN M.R.#: [id number] Admission: 01/26/20 Attend Phys: Fuentes Dubon MD Discharge: 01/27/20 Date of : 53 Report #: [id number] THIS REPORT FOR: //name// CC: Horacio Dubon DATE OF SERVICE: 01/26/2020 This patient is being evaluated for altered mental status. EEG has a lot of artifact but background activity does go up to about 8-9 Hz and 20 microvolt. A lot of time it is slow. Photic stimulation is unremarkable. IMPRESSION: This patient's EEG does have intermixed slowing which can occur with encephalopathy, effects of psychotropic medication, dementia, but slowing is relatively minor. A lot of artifact is present and it is difficult to tell if she has seizure activity or not, but the best I can tell, no seizure activity was noticed. Thank you very much for this referral. <ELECTRONICALLY SIGNED> By: Gerard Hitchcock MD 01/29/20 184 [id number] 04 Gerard Hitchcock MD /nt
--- NOTE | 2020-01-29 18:41 | HC ---
[facility] [address] [place] [address] CONSULTATION Name: [facility] Room #: [address] [place] [address] IN M.R.#: [id number] Admission: 01/26/20 Attend Phys: Fuentes Dubon MD Discharge: 01/27/20 Date of : 53 Report #: [id number] THIS REPORT FOR: cc: Horacio Marshall MD, Dennis R MD Khosla, Parveen K. MD ~ CC: Horacio Dubon DATE OF SERVICE: 01/26/2020 HISTORY OF PRESENT ILLNESS: This is a 64-year-old female patient who was evaluated by me for altered mental status. She does not provide any reliable history. She is saying something, but that does not make sense. She keeps her eyes closed, but then she wakes up. She was found unresponsive. She has respiratory problems as per records and she was admitted with hypercarbic failure. It looks like she had this problem multiple times. She also has psychiatric problem. She has been seen by psychiatric this time and she has been seen by psychiatric last time. REVIEW OF SYSTEMS: Positive for severe COPD as well as cardiomyopathy. That is all the 14-point review of system, which I can get which is relevant. PAST MEDICAL HISTORY: Positive for COPD. SOCIAL HISTORY: She is a former smoker. PHYSICAL EXAMINATION: Limited. She is sleeping. She wakes up. When she wakes up, she says a few things which does not make any sense. Sometime she will follow commands, sometime she will not. She does not have any meningeal sign. She did not cooperate with the cranial nerve examination, she moves, but I cannot determine sensory or motor examination. Blood pressure is 127/72. LABORATORY DATA: WBC count is 12.6. Estimated GFR is 55. That is all the examination, I could do, which I tried. IMPRESSION: Pretty difficult to form in this patient. I will get an EEG done to make sure there is no seizure disorder. We will talk to the psychiatrist and she had this problem, so many times, we will see if she wakes up and become more responsive. [facility] [address] [place] [address] CONSULTATION Name: [facility] Room #: 455-P DIS IN M.R.#: [id number] Admission: 01/26/20 Attend Phys: Fuentes Dubon MD Discharge: 01/27/20 Date of : 53 Report #: [id number] Thank you very much for this referral and if you have any question, please feel free to contact me. <ELECTRONICALLY SIGNED> By: Gerard Hitchcock MD 01/29/20 [id number] Gerard Hitchcock MD /nt
== END 2020-01-27 15:00 | disposition hospice, home (50) | DRG 91 ==
LOC: ER 20:58 → 4W 01-26 00:56 → EROBS 01-26 00:56 → 4W 01-26 01:27
PROVIDERS: Emergency Medicine; ADMIT Internal Medicine
DX: G92 Toxic encephalopathy (principal); J96.20 Acute and chronic respiratory failure, unspecified whether with hypoxia or hypercapnia; I42.9 Cardiomyopathy, unspecified; F20.0 Paranoid schizophrenia; J44.9 Chronic obstructive pulmonary disease, unspecified; I11.0 Hypertensive heart disease with heart failure; G47.33 Obstructive sleep apnea (adult) (pediatric); Z66 Do not resuscitate; Z51.5 Encounter for palliative care; F17.210 Nicotine dependence, cigarettes, uncomplicated; I50.9 Heart failure, unspecified; Z79.899 Other long term (current) drug therapy; Z87.01 Personal history of pneumonia (recurrent); Z79.82 Long term (current) use of aspirin
CPT/HCPCS: 10045